=== PATIENT | male | born 1985 | race Two or more races ===

== ENCOUNTER → 2017-12-04 16:44 | Outpatient (CLI) | payer OTHER, SELFPAY ==
[2017-12-04 18:00] LABS: Hemoglobin A1c 5.2 % (4.2-6.3)
[2017-12-04 18:10] LABS: Glucose 84 mg/dL (74-106)
[2017-12-06 07:47] LABS: Fructosamine 238 umol/L (0-285)
== END ==
PROVIDERS: Family Provider Family Medicine; PCP Family Medicine; Visit Provider Family Medicine
DX: K21.9 Gastro-esophageal reflux disease without esophagitis (principal)
CPT/HCPCS: 36415; 82947; 82985; 83036

== ENCOUNTER → 2018-01-22 16:38 | Outpatient (CLI) | payer OTHER, SELFPAY ==
[2018-01-22 18:34] LABS: Anion Gap 5 (5-15); BUN 20 mg/dL (7-18); BUN/Creat Ratio 15.3 RATIO (10-20); Chloride 100 mmol/L (98-107); Cholesterol 229 mg/dL (200); Creatinine, Serum 1.31 mg/dL (0.70-1.30); EST Glomerular Filtration Rate 66 mL/min (>60); Est Glom Filt Rate - Afr Amer 80 mL/min (>60); Glucose 90 mg/dL (74-106); High Density Lipoprotein 43 mg/dL; Potassium 3.5 mmol/L (3.5-5.1); Sodium Level 137 mmol/L (136-145); Triglycerides 146 mg/dL; Very Low Density Lipoprotein 29 mg/dL (5-40)
[2018-01-22 18:50] LABS: Microalbumin,Random Urine 16.3 mg/L (NO RANGE EST.); Microalbumin:Creatinine Ratio 8.1 mg/g CRE (<30 mg/g CRE)
== END ==
PROVIDERS: Family Provider Family Medicine; PCP Family Medicine; Visit Provider Family Medicine
DX: I10 Essential (primary) hypertension (principal)
CPT/HCPCS: 36415; 80048; 80061; 82043; 82570

== ENCOUNTER → 2018-08-04 13:34 | Outpatient (CLI) | payer OTHER, SELFPAY ==
[2018-08-04 15:39] LABS: Absolute Lymphocyte Count 2.87 X10^3/ul (0.83-4.51); Absolute Neutrophil Count 3.5 X10^3/uL (2.0-7.7); Basophil# 0.01 X10^3/uL; Basophil% 0.1 % (0-1); Eosinophil# 0.04 X10^3/uL; Eosinophils% 0.6 % (0-5); Hematocrit 43.7 % (40-54); Hemoglobin 15.9 g/dl (13.0-16.5); Lymphocyte # 2.87 X10^3/ul (4.0); Lymphocyte % 42.3 % (19-41); Mean Corp Hgb Conc 36.4 g/gl (32-36); Mean Corpuscular Hgb 29.6 pg (27.0-32.0); Mean Corpuscular Volume 81.2 fL (80-94); Mean Platelet Vol. 10.7 fl (6.2-12.0); Monocyte# 0.32 X10^3/uL; Monocyte% 4.7 % (0-10); Neutrophil # 3.54 X10^3/uL (2.7-7.7); Neutrophil % 52.2 % (47-70); Platelet Count 181 K/mm3 (150-450); RBC Distribution Width CV 12.2 % (11.6-14.6); RBC Distribution Width SD 35.9 fl (35.1-43.9); Red Blood Count 5.38 M/mm3 (4.6-6.2); White Blood Count 6.8 K/mm3 (4.4-11.0)
[2018-08-04 15:51] LABS: POSITIVE COUNT NO; POSITIVE DIFFERENTIAL NO; POSITIVE MORPHOLOGY NO
[2018-08-04 16:30] LABS: ALB/GLOB Ratio 1.3 RATIO (0.9-2.4); AST(SGOT) 24 U/L (15-37); Alanine Aminotransfer ALT/SGPT 34 U/L (16-61); Albumin, Serum 4.4 g/dL (3.2-5.0); Alkaline Phosphatase 51 U/L (45-117); Anion Gap 8 (5-15); BUN 18 mg/dL (7-18); BUN/Creat Ratio 15.8 RATIO (10-20); Calcium,Total 9.3 mg/dL (8.5-10.1); Chloride 98 mmol/L (98-107); Creatinine, Serum 1.14 mg/dL (0.70-1.30); EST Glomerular Filtration Rate 78 mL/min (>60); Est Glom Filt Rate - Afr Amer 94 mL/min (>60); Globulin 3.3 g/dL (2.2-4.2); Glucose 88 mg/dL (74-106); Potassium 3.7 mmol/L (3.5-5.1); Protein, Total 7.7 g/dL (6.4-8.2); Sodium Level 138 mmol/L (136-145); Thyroid Stim Hormone (TSH) 3.63 uIU/mL (0.358-3.74)
== END ==
PROVIDERS: Family Provider Family Medicine; PCP Family Medicine; Referring Provider Family Medicine; Visit Provider Family Medicine
DX: R07.89 Other chest pain (principal)
CPT/HCPCS: 36415; 80053; 84443; 84484; 85025

== ENCOUNTER 2018-08-05 16:46 | Day surgery (SDC) | payer OTHER, SELFPAY ==
[2018-08-05] VITALS (12 sets, daily range): BP systolic 103–164; BP diastolic 55–101; PULSE 68–91; RESP 10–24; TEMP 36.7–36.9; O2SAT 92–100; BMI 31.8; BMI 31.9
--- NOTE | 2018-08-05 07:18 | RAD_ITS ---
STUDY: X-RAY CHEST REASON FOR EXAM: Male, 32 years old. Atypical chest pain. TECHNIQUE: PA and lateral views of the chest. COMPARISON: None. FINDINGS: The lungs are clear and expanded. There is no demonstrated pleural abnormality. Normal size heart. Normal mediastinum and donya. Normal visualized pulmonary arteries. Normal visualized aortic arch and descending thoracic aorta. There are minor multilevel degenerative changes of the visualized thoracic spine. Normal visualized ribs, clavicles, and shoulders. There is no demonstrated abnormality of the visualized soft tissue structures of the upper abdomen. RAD/Chest PA and Lateral IMPRESSION: No acute cardiopulmonary disease. Electronically Signed: Edgard Vazquez MD at 19:55 EDT , Service support ,
[2018-08-05 07:41] LABS: CPK Total, Creatine Kinase 162 U/L (39-308); CRP 5.65 mg/L (0.0-3.0); LDH 165 U/L (87-241)
--- NOTE | 2018-08-05 19:00 | EKG12_ITS ---
Test Reason : POST STENT Blood Pressure : / mmHG Vent. Rate : 072 BPM Atrial Rate : 072 BPM P-R Int : 188 ms QRS Dur : 102 ms QT Int : 402 ms P-R-T Axes : 043 046 -04 degrees QTc Int : 440 ms Normal sinus rhythm Nonspecific T wave abnormality Confirmed by PATRIA TERRY, RUBEN ([id number]), assignment editor DERECK GARCIA ([id number] on 08/10/2018 3:08:49 PM Referred By: Taina Paulson Confirmed By:RUBEN ESPAÑA MD
--- NOTE | 2018-08-05 19:19 | PCM.HP.STD ---
Problem List (1) Essential (primary) hypertension Status: Chronic (2) Chest pain Status: Resolved (3) NSTEMI (non-ST elevated myocardial infarction) Status: Chronic (4) CAD (coronary artery disease) Status: Deleted History of Present Illness Date of Admission: 08/05/18 Chief Complaint: Chest pain, s/p cardiac cath The patient is a 32 year old M with past medical history of hypertension, hyperlipidemia, strong family history of heart disease who comes in with complaints of chest pain ongoing for the past 6 days. Patient was working out 6 days ago when he had severe substernal chest pain, described as an elephant sitting on his chest, associated with shortness of breath, lasted for a few minutes and radiated to the right side of the chest. Denied any diaphoresis or dizziness or palpitations with it. This chest pain recurred over the next couple of days. It was worse with exertion and relieved with rest. It had no radiation. He denied any fever or chills or nausea or vomiting. He saw his primary care doctor yesterday, and EKG in the office was negative, troponin was elevated at 0.7. Repeat troponin this morning was 0.5. Patient was referred to the primary pinmaker office. He was recommended to have a heart cath. Findings Intracath showed a RCA lesion status post stent. Shunt was seen in the ICU post cardiac cath, he denied any more chest pain or dizziness. He has a right wrist hematoma and a cardiac cath site. Complains of some numbness in the hematoma site. Able to move his fingers. Post cardiac cath precaution and tourniquet still in place. Vitals in the ICU showed blood pressure 140/90, heart rate 69, respiratory rate 18, SPO2 99% on room air. His previous TSH was 3.63 Past Medical History Past Medical History (Chronic Problems): Chronic Problems (Last Reviewed 08/24/18 @ 16:00 by Taina Paulson MD) Atherosclerosis of coronary artery of [place] heart without angina pectoris (Chronic) Presence of stent in coronary artery (Chronic) /AYO to dRCA / NSTEMI (non-ST elevated myocardial infarction) (Chronic) Essential (primary) hypertension (Chronic) Medical History: Medical History (Last Reviewed 08/24/18 @ 16:00 by Taina Paulson MD) Atherosclerosis of coronary artery of [place] heart without angina pectoris (Chronic) I25.10 Chest pain (Resolved) R07.9 Essential (primary) hypertension (Chronic) I10 Allergies No Known Allergies Allergy (Verified 08/05/18 15:10) Home Medications: Ambulatory Orders Medication Instructions Recorded amlodipine 5 mg tablet 5 mg PO DAILY 08/05/18 multivitamin tablet 1 tab PO DAILY 08/05/18 omega-3 fatty acids 1,000 mg 1,000 mg PO DAILY 08/05/18 capsule quinapril 5 mg tablet 5 mg PO DAILY 08/05/18 Aspirin E.C. [Ecotrin] 81 mg PO DAILY@0800 tab 08/06/18 clopidogrel 75 mg tablet 75 mg PO DAILY #30 tab 08/20/18 coenzyme Q10 100 mg capsule 100 mg PO DAILY #30 cap 08/24/18 indapamide 1.25 mg tablet 1.25 mg PO DAILY 90 Days #90 tab 08/24/18 rosuvastatin 10 mg tablet 10 mg PO DAILY #30 tab 08/24/18 Surgical History: Surgical History (Last Reviewed 08/24/18 @ 16:00 by Taina Paulson MD) Presence of stent in coronary artery (Chronic) Z95.5 /AYO to dRCA / Surgical History: no surgical history Psychiatric History: No pertinent psych hx Lives: With Family Smoking Status: Never smoker Tobacco Use: Non-smoker Alcohol: None Drugs: None - *Family History Maternal Family History: Family History (Last Reviewed 08/24/18 @ 16:00 by Taina Paulson MD) Grandfather Hypertension Father Hypertension CAD (coronary artery disease) Diabetes Mother Hypertension Diabetes History Items: Diabetes, Hypertension Paternal Family History: Family History (Last Reviewed 08/24/18 @ 16:00 by Taina Paulson MD) Grandfather Hypertension Father Hypertension CAD (coronary artery disease) Diabetes Mother Hypertension Diabetes History Items: Diabetes, Hypertension, - - CAD Review of Systems Constitutional: Denies: Anorexia, Chills, Fever, Malaise, Weakness, Weight Change Eyes: Denies: Blurred vision, Cataracts, Conjunctivae Inflammation, Pain, Redness, Vision Change HEENT: Denies: Difficulty Hearing, Difficulty Swallowing, Head Aches, Hearing Changes, Sinus Congestion, Sinus Drainage Cardiovascular: Reports: Chest Pain, Chest Pressure, Chest Tightness. Denies: Claudication, Light Headedness, Orthopnea, Palpitations, Paroxysmal Noc. Dyspnea Respiratory: Denies: Cough, Hemoptysis, Shortness of breath at rest, Shortness of breath upon exertion, Sputum production Gastrointestinal: Denies: Abdominal Pain, Hematemesis, Hematochezia, Nausea, Vomiting Genitourinary: Denies: Dysuria Musculoskeletal: Denies: Joint Pain, Joint Tenderness Skin: Denies: Dryness, Jaundice, Rash, Wounds Neurological: Denies: Numbness, Tingling, Focal weakness Psychiatric: Denies: Anxiety, Depression, Homicidal Ideations, Suicidal Ideations Hematologic/ Lymphatic: Denies: Easy Bruising, Easy Bleeding VTE Information - Inpt Only VTE Present on Admission: No VTE Pharm Prophylaxis ordered?: Yes - Physical Exam General: Alert, Oriented x3, Cooperative, No apparent distress HEENT: Atraumatic, PERRLA, EOMI, Normocephalic Oral: Moist Mucosa Neck: Supple Lungs: Clear to auscultation, Normal air movement Cardiovascular: Regular rate, Regular Rhythm, Normal S1, Normal S2, No murmurs Abdomen: Bowel Sounds Present, Soft, Non Tender, Non-Distended, No Hepato-splenomegaly Extremities: No edema, - - Right wrist hematoma at cardiac cath site Skin: No rashes Musculoskeletal: No Tenderness to Palpation of Joints or Extremities Lymphatic: No Cervical, Supraclavicular, or Inguinal Adenopathy Neurological: Cranial nerves II-XII grossly intact, Neuro grossly intact Psych/Mental Status: Normal Affect, Appropriate Body Mass Index (BMI) 31.8 Laboratory Tests Past 24 Hrs 08/05/18 08/05/18 08/05/18 07:07 07:07 07:07 Lactate Dehydrogenase 165 Total Creatine Kinase 162 Troponin I 0.502 H C-React Prot Ext Range 5.65 H Aldolase Pending MELIA Screen Pending Assessment/Plan All Active Problems (Last Reviewed 08/24/18 @ 16:00 by Taina Paulson MD) Chest pain (Resolved) 32 year old M with past medical history of hypertension, hyperlipidemia, strong family history of heart disease who comes in with complaints of chest pain ongoing for the past 6 days. 1. NSTEMI, ELEAZAR score of 5, s/p cardiac cath, finding show RCA, s/p stent, stable vitals Plan: Admit to ICU, post cath orders, cardiology on board, on aspirin and Brilinta, continue on statin, Quinapril 2. Hypertension,controlled, will continue with home BP meds 3. Hyperlipidemia, not statin, will check lipid profile in am 4. DVT PPx- early ambulation Code Visit Inpatient E&M: 45309 Init Hosp L3
[2018-08-05] MEDS: TICAGRELOR 90 MG TABLET PO (22:28)
[2018-08-05] MEDS: Atorvastatin Calcium 40 MG Tablet PO (22:28)
[2018-08-06] VITALS (12 sets, daily range): BP systolic 105–135; BP diastolic 70–97; PULSE 65–75; RESP 9–21; TEMP 36.6–36.8; O2SAT 95–98
[2018-08-06 04:46] LABS: Absolute Lymphocyte Count 2.02 X10^3/ul (0.83-4.51); Absolute Neutrophil Count 4.9 X10^3/uL (2.0-7.7); Basophil# 0.01 X10^3/uL; Basophil% 0.1 % (0-1); Eosinophil# 0.04 X10^3/uL; Eosinophils% 0.5 % (0-5); Hematocrit 41.8 % (40-54); Lymphocyte # 2.02 X10^3/ul (4.0); Lymphocyte % 26.2 % (19-41); Mean Platelet Vol. 10.5 fl (6.2-12.0); Monocyte# 0.74 X10^3/uL; Monocyte% 9.6 % (0-10); Neutrophil # 4.89 X10^3/uL (2.7-7.7); Neutrophil % 63.3 % (47-70); Platelet Count 204 K/mm3 (150-450); RBC Distribution Width CV 12.2 % (11.6-14.6); RBC Distribution Width SD 34.7 fl (35.1-43.9); Red Blood Count 5.29 M/mm3 (4.6-6.2); White Blood Count 7.7 K/mm3 (4.4-11.0)
[2018-08-06 04:50] LABS: Hemoglobin 15.6 g/dl (13.0-16.5); Mean Corp Hgb Conc 37.3 g/gl (32-36); Mean Corpuscular Hgb 29.5 pg (27.0-32.0); POSITIVE COUNT NO; POSITIVE DIFFERENTIAL NO; POSITIVE MORPHOLOGY NO
[2018-08-06 04:56] LABS: ALB/GLOB Ratio 1.2 RATIO (0.9-2.4); AST(SGOT) 19 U/L (15-37); Alanine Aminotransfer ALT/SGPT 29 U/L (16-61); Albumin, Serum 3.8 g/dL (3.2-5.0); Alkaline Phosphatase 49 U/L (45-117); Anion Gap 8 (5-15); BUN 20 mg/dL (7-18); Calcium,Total 8.7 mg/dL (8.5-10.1); Chloride 102 mmol/L (98-107); Cholesterol 229 mg/dL (200); Creatinine, Serum 1.25 mg/dL (0.70-1.30); EST Glomerular Filtration Rate 70 mL/min (>60); Est Glom Filt Rate - Afr Amer 85 mL/min (>60); Estimated Creatinine Clearance 72.43 ml/min; Globulin 3.2 g/dL (2.2-4.2); Glucose 125 mg/dL (74-106); High Density Lipoprotein 34 mg/dL; Potassium 3.1 mmol/L (3.5-5.1); Sodium Level 140 mmol/L (136-145); Triglycerides 317 mg/dL; Very Low Density Lipoprotein 63 mg/dL (5-40)
[2018-08-06] MEDS: Aspirin E.C. 81 MG Tablet PO (09:10)
[2018-08-06] MEDS: TICAGRELOR 90 MG TABLET PO (09:10)
--- NOTE | 2018-08-06 09:41 | CASEMGMT ---
RN CM Assessment Presentation: PCI of dRCA. chest pain. Intro role of CM and purpose of RN CM assessment to patient in room. Pt is sitting in chair, awake, alert and able to participate in assessment. Demographics, PCP and Pharmacy verified. PCP: Dr. Mack Neff Specialists: Dr. Moulton, cardiology Preferred Pharmacy: [facility] Insurance: [facility] Prescription Benefit: yes. [employer] savings card and information brochure given and explained to pt. LNOK: Edward Paniagua [phone] Living Arrangements: Lives independently with Transportation: Drives DME: none HHC: none Patient DC goals: Home DC PLAN: Home. Noemy GONSALEZ RN ACM
--- NOTE | 2018-08-06 09:47 | DCINST_ITS ---
- Discharge Diagnoses Current Active Problems: Current Active and Chronic Problems (Last Reviewed 08/05/18 @ 15:54 by Taina Paulson MD) NSTEMI (non-ST elevated myocardial infarction) (Acute) CAD (coronary artery disease) (Acute) You will use the following diet at home:: Cardiac Your food should be the consistency of: Regular Your liquids should be the consistency of: Regular/Thin Discharge Activity: Return to Normal Activity Allergies/Adverse Reactions: Allergies No Known Allergies Allergy (Verified 08/05/18 15:10) Medications to take at Discharge amlodipine 5 mg tablet 5 mg PO DAILY 08/05/18 multivitamin tablet 1 tab PO DAILY 08/05/18 omega-3 fatty acids 1,000 mg capsule 1,000 mg PO DAILY 08/05/18 quinapril 5 mg tablet 5 mg PO DAILY 08/05/18 Acetaminophen [Tylenol Tablet] 650 mg PO Q6H PRN PRN tablet 08/06/18 Aspirin E.C. [Ecotrin] 81 mg PO DAILY@0800 tablet 08/06/18 Atorvastatin Calcium [Lipitor] 40 mg PO QHS #30 tablet 08/06/18 Ticagrelor [Brilinta] 90 mg PO BID #60 tablet 08/06/18 The following prescriptions were given: Atorvastatin Calcium [Lipitor] 40 mg PO QHS #30 tablet Ticagrelor [Brilinta] 90 mg PO BID #60 tablet Primary Care Physician: Mack Neff MD [Primary Care Provider] - Please follow up with your Primary Care Physician in: 1-2 weeks Test Results: Test results from this visit will be discussed in further detail at your follow- up appointment, if applicable. Please Follow Up With: Taina Paulson MD When: as directed Proposed Discharge Date: 08/06/18
--- NOTE | 2018-08-06 10:00 | EKG12_ITS ---
Test Reason : AM EKG Blood Pressure : / mmHG Vent. Rate : 066 BPM Atrial Rate : 066 BPM P-R Int : 172 ms QRS Dur : 100 ms QT Int : 398 ms P-R-T Axes : 032 054 -04 degrees QTc Int : 417 ms Normal sinus rhythm Nonspecific T wave abnormality Confirmed by PATRIA TERRY, RUBEN ([id number]), content editor DERECK GARCIA ([id number]) on 08/10/2018 3:08:29 PM Referred By: Taina Paulson Confirmed By:RUBEN ESPAÑA MD
--- NOTE | 2018-08-06 11:21 | PCM.PN.CARD ---
Subjectve: Patient doing well this morning, no chest pain or angina. He appears to have a small hematoma upstream from his right radial access site, excellent 2+ pulses, no evidence of compartment syndrome. 2+ brachial pulses well. Telemetry negative. EKG shows normal sinus rhythm with resolving inferior T wave inversion. No acute changes. Hemoglobin and creatinine are within nominal limits. Objective: Vital Signs Temp Pulse Resp BP Pulse Ox 98.2 F 72 12 121/78 H 97 08/06/18 04:00 08/06/18 10:00 08/06/18 10:00 08/06/18 10:00 08/06/18 10:00 Oxygen Delivery Method Room Air Weight: 192 lb 0.362 oz Body Mass Index (BMI) 31.9 Intake and Output for Last 24 Hours 08/04/18 08/05/18 08/06/18 23:59 23:59 23:59 Intake Total 1044.1 / 1044.1 Balance 1044.1 / 1044.1 General: Awake, Alert, Oriented x 3 HEENT: PERRL, EOMI, Sclera Non Icteric Neck: Supple, Good ROM, No Lymph Node Enlargement Lungs: Clear to auscultation Cardiovascular: Regular Rhythm, Normal S1, Normal S2, No Murmurs, No Rubs, No Gallops Vascular: No Carotid Bruits, Normal Femoral Pulses, Normal Radial Pulses, Normal Dorsalis Pedal Pulse, Normal Posterior Tibial Pulses Abdomen: Bowel Sounds Present, Soft, Non Tender, No HSM, No Organomegaly Extremities: No Cyanosis, No Clubbing, No edema Neurological: No Focal Motor or Sensory Deficit Rhythm: EKG: ECHO: Stress Test: Cardiac Cath: PCI: CT Surgery: Holter monitor: EPS: PPM: CXR: Chest CT Scan: Medical Necessity - Tobacco Use Smoking Status: Never smoker Tobacco Use: Non-smoker Assessment/Plan 1. Coronary artery disease: Patient status post unstable angina, non-STEMI, with urgent left heart catheterization yesterday by Dr. Paulson. At that time he had a drug-eluting stent to his distal right coronary artery. He had nonobstructive disease of his LAD and left circumflex. He had normal LV function. Subsequent to that he had a small nonobstructive non-compartmentalized hematoma in his right forearm, with excellent 2+ radial pulses, and hematoma appears to be stable. It is soft, nontender, and no significant ecchymosis noted. I informed the patient that his hematoma may become cauterized on the skin, and to notify us immediately if it gets worse, becomes painful, red or infected. The patient will continue baby aspirin, Brilinta, amlodipine and quinapril. 2. Hyperlipidemia: The patient requires aggressive LDL reduction for further plaque stabilization. Continue Lipitor. We will repeat lipid profile after cardiac rehab. 3. Patient be discharged home and follow-up Dr. Paulson going forward. Code Visit Inpatient E&M: 99626 Subs Hosp L2
--- NOTE | 2018-08-06 11:36 | CRPHASE1_ITS ---
Patient Communication Choice Letter Given to Patient:: Yes Guide to Cardiac Rehab Given by ICU Staff Prior to Discharge: No - pt states does not have the booklet Guide to Cardiac Rehab Mailed to Patient by CR Staff:: Yes Patient Contacted Post Discharge by CR Staff:: Yes PHII Cardiac Rehab Referral:: [facility] Phase I Charge:: Level I - Education Risk Factors/Lifestyle Family History: Family History (Last Reviewed 08/24/18 @ 16:00 by Taina Paulson MD) Grandfather Hypertension Father Hypertension CAD (coronary artery disease) Diabetes Mother Hypertension Diabetes Laboratory Values: Cardiac Rehab Phase I Labs Triglycerides 317 mg/dL (-199) H 08/06/18 04:25 Cholesterol 229 mg/dL (200) H 08/06/18 04:25 LDL Cholesterol 132 mg/dL (0-130) H 08/06/18 04:25 HDL Cholesterol 34 mg/dL (40-) L 08/06/18 04:25 Discharge/Home/Social Eval Discharge Disposition: Home - Pt was discharged prior to CR visit, so contacted by phone and Booklet mailed to him. Cardiac Rehabilitation Info Cardiac Rehabilitation Program Information: Cardiac Rehabilitation is important for patients like you who are recovering from a heart problem. Cardiac rehabilitation programs are recognized as integral to the continued care of the patient with coronary heart disease. The cardiac rehabilitation program is designed to optimize a patient's physical, psychological, and social functioning. Health before and after school daycare worker work in cardiac rehabilitation programs and assist you with getting the treatme nts you need to get stronger and healthier - like exercise, healthy eating habits, and medications. Cardiac rehabilitation has been show to help people with heart problems live longer and have better life enjoyment than people who do not go to cardiac rehabilitation. Please contact the Cardiac Rehabilitation Program at [facility] at in two weeks if you have not heard from them.
--- NOTE | 2018-08-06 11:40 | CRPHASE1_ITS ---
Patient Communication Choice Letter Given to Patient:: Yes Guide to Cardiac Rehab Given by ICU Staff Prior to Discharge: No - pt states does not have the booklet Guide to Cardiac Rehab Mailed to Patient by CR Staff:: Yes Patient Contacted Post Discharge by CR Staff:: Yes PHII Cardiac Re[facility] Phase I Charge:: Level I - Education Risk Factors/Lifestyle Family History: Family History (Last Reviewed 08/05/18 @ 15:54 by Taina Paulson MD) Grandfather Hypertension Father Hypertension CAD (coronary artery disease) Diabetes Mother Hypertension Diabetes Laboratory Values: Cardiac Rehab Phase I Labs Triglycerides 317 mg/dL (-199) H 08/06/18 04:25 Cholesterol 229 mg/dL (200) H 08/06/18 04:25 LDL Cholesterol 132 mg/dL (0-130) H 08/06/18 04:25 HDL Cholesterol 34 mg/dL (40-) L 08/06/18 04:25 Discharge/Home/Social Eval Discharge Disposition: Home - Pt was discharged prior to CR visit, so contacted by phone and Booklet mailed to him. Cardiac Rehabilitation Info Cardiac Rehabilitation Program Information: Cardiac Rehabilitation is important for patients like you who are recovering from a heart problem. Cardiac rehabilitation programs are recognized as integral to the continued care of the patient with coronary heart disease. The cardiac rehabilitation program is designed to optimize a patient's physical, psychological, and social functioning. Health childcare administrator work in cardiac rehabilitation programs and assist you with getting the treatme nts you need to get stronger and healthier - like exercise, healthy eating habits, and medications. Cardiac rehabilitation has been show to help people with heart problems live longer and have better life enjoyment than people who do not go to cardiac rehabilitation. Please contact the Cardiac Rehabilitation Program at [facility] at in two weeks if you have not heard from them.
--- NOTE | 2018-08-06 11:40 | CRPH1.INSTRU ---
General Education CAD and cardiac anatomy and function:: Not instructed - Pt. discharged prior to visit by CR staff, so called on phone and info given about CR. States he doesn't have booklet, so one mailed to him.
--- NOTE | 2018-08-06 13:09 | PCM.DC.SUM ---
<Horacio Maharaj - Last Filed: 08/06/18 13:09> Discharge Date and Diagnosis Date of Admission: 08/05/18 Date of Discharge: 08/06/18 - Primary Discharge Diagnosis Non-STEMI Hypertension Hyperlipidemia - Secondary Discharge Diagnosis Chronic Problems (Last Reviewed 08/05/18 @ 15:54 by Taina Paulson MD) Essential (primary) hypertension (Chronic) Hospital Course and Treatment Imaging Results: RAD/Chest PA and Lateral IMPRESSION: No acute cardiopulmonary disease. Left heart cath: Single-vessel CAD with successful PTCA to the distal right coronary artery. 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 Prior to the office he had troponins drawn which were elevated at 0.5 and 0.7. He was sent for heart catheterization from the office for non-STEMI. He underwent stent placement as above. He was kept in the hospital overnight for monitoring. Bleeding was controlled, and he had no further chest pain. He was placed on atorvastatin, aspirin, Brilinta, quinapril, and amlodipine at discharge. He was discharged home in stable condition. He will need to follow-up with his PCP in 1 to 2 weeks, and with cardiology as directed. This patient was seen by Horacio Maharaj PA-C under the supervision of Doctor Jeffery. [] - Physical Exam General: Alert, Oriented x3, Cooperative HEENT: Atraumatic, PERRLA, EOMI, Normocephalic Neck: Supple, No JVD, Negative Carotid Bruits Lungs: Clear to auscultation, Normal air movement Cardiovascular: Regular rate, No murmurs Abdomen: Bowel Sounds Present, Soft, Non Tender Extremities: No edema, Capillary Refill Less than 3 Seconds Skin: No rashes, No breakdown Musculoskeletal: No Tenderness to Palpation of Joints or Extremities Neurological: Cranial nerves II-XII grossly intact Psych/Mental Status: Normal Affect, Appropriate Vital Signs Temp Pulse Resp BP Pulse Ox 98.2 F 72 12 121/78 H 97 08/06/18 04:00 08/06/18 10:00 08/06/18 10:00 08/06/18 10:00 08/06/18 10:00 Oxygen Delivery Method Room Air Weight: 192 lb 0.362 oz Body Mass Index (BMI) 31.8 Intake and Output for Last 24 Hours 08/04/18 08/05/18 08/06/18 23:59 23:59 23:59 Intake Total 1044.1 / 1044.1 Balance 1044.1 / 1044.1 Laboratory Tests Past 24 Hrs 08/05/18 08/05/18 08/05/18 07:07 07:07 07:07 WBC RBC Hgb Hct MCV MCH MCHC RDW RDW Differential Plt Count MPV Immature Gran % (Auto) Neut % (Auto) Lymph % (Auto) Major % (Auto) Eos % (Auto) Baso % (Auto) Absolute Neuts (auto) Absolute Lymphs (auto) Sodium Potassium Chloride Carbon Dioxide Anion Gap BUN Creatinine Estim Creat Clear Calc Est GFR (MDRD) Af Amer Est GFR (MDRD) Non-Af BUN/Creatinine Ratio Glucose Calcium Total Bilirubin AST ALT Alkaline Phosphatase Lactate Dehydrogenase 165 Total Creatine Kinase 162 Troponin I 0.502 H C-React Prot Ext Range 5.65 H Total Protein Albumin Globulin Albumin/Globulin Ratio Triglycerides Cholesterol LDL Cholesterol VLDL Cholesterol HDL Cholesterol Aldolase Pending MELIA Screen Pending 08/06/18 08/06/18 04:25 04:25 WBC 7.7 RBC 5.29 Hgb 15.6 Hct 41.8 MCV 79.0 L MCH 29.5 MCHC 37.3 H RDW 12.2 RDW Differential 34.7 L Plt Count 204 MPV 10.5 Immature Gran % (Auto) 0.300 Neut % (Auto) 63.3 Lymph % (Auto) 26.2 Major % (Auto) 9.6 Eos % (Auto) 0.5 Baso % (Auto) 0.1 Absolute Neuts (auto) 4.9 Absolute Lymphs (auto) 2.02 Sodium 140 Potassium 3.1 L Chloride 102 Carbon Dioxide 30.0 Anion Gap 8 BUN 20 H Creatinine 1.25 Estim Creat Clear Calc 72.43 Est GFR (MDRD) Af Amer 85 Est GFR (MDRD) Non-Af 70 BUN/Creatinine Ratio 16.0 Glucose 125 H Calcium 8.7 Total Bilirubin 0.60 AST 19 ALT 29 Alkaline Phosphatase 49 Lactate Dehydrogenase Total Creatine Kinase Troponin I C-React Prot Ext Range Total Protein 7.0 Albumin 3.8 Globulin 3.2 Albumin/Globulin Ratio 1.2 Triglycerides 317 H Cholesterol 229 H LDL Cholesterol 132 H VLDL Cholesterol 63 H HDL Cholesterol 34 L Aldolase MELIA Screen Discharge Diet: Low fat/ Low Cholesterol, 2000 mg Sodium Diet Discharge Activity: Return to Normal Activity Home Medications: Medications to take at Discharge amlodipine 5 mg tablet 5 mg PO DAILY 08/05/18 multivitamin tablet 1 tab PO DAILY 08/05/18 omega-3 fatty acids 1,000 mg capsule 1,000 mg PO DAILY 08/05/18 quinapril 5 mg tablet 5 mg PO DAILY 08/05/18 Acetaminophen [Tylenol Tablet] 650 mg PO Q6H PRN PRN tablet 08/06/18 Aspirin E.C. [Ecotrin] 81 mg PO DAILY@0800 tablet 08/06/18 Atorvastatin Calcium [Lipitor] 40 mg PO QHS #30 tablet 08/06/18 Ticagrelor [Brilinta] 90 mg PO BID #60 tablet 08/06/18 Following Prescrptions Were Given to Patient: Atorvastatin Calcium [Lipitor] 40 mg PO QHS #30 tablet Ticagrelor [Brilinta] 90 mg PO BID #60 tablet Primary Care Physician: Mack Neff MD [Primary Care Provider] - Please follow up with your Primary Care Physician in: 1-2 weeks Please Follow Up With: Taina Paulson MD When: as directed Disposition: Home Minutes spent on discharge:: 35 Patient Condition:: Stable Medical Necessity - Tobacco Use Smoking Status: Never smoker Tobacco Use: Non-smoker Meaningful Use Info Meaningful Use Diagnoses (Choose all that apply): AMI - AMI Aspirin given w/in 24hrs of arrival?: Yes ASA at discharge?: Yes Statins at discharge?: Yes Juan/ARB at discharge?: Yes Beta Gwen at discharge?: No Reason Beta Gwen not ordered:: Hypotension Done w/ Acute LA measure.: Yes Documented LVEF (%): 60 <Jose Jeffery - Last Filed: 08/06/18 13:34> Discharge Date and Diagnosis - Secondary Discharge Diagnosis Chronic Problems (Last Reviewed 08/05/18 @ 15:54 by Taina Paulson MD) Essential (primary) hypertension (Chronic) Hospital Course and Treatment Summary of Care Provided: The patient is a 32 year old M [] - Physical Exam Vital Signs Temp Pulse Resp BP Pulse Ox 98.2 F 72 12 121/78 H 97 08/06/18 04:00 08/06/18 10:00 08/06/18 10:00 08/06/18 10:00 08/06/18 10:00 Oxygen Delivery Method Room Air Weight: 192 lb 0.362 oz Body Mass Index (BMI) 31.8 Intake and Output for Last 24 Hours 08/04/18 08/05/18 08/06/18 23:59 23:59 23:59 Intake Total 1044.1 / 1044.1 Balance 1044.1 / 1044.1 Laboratory Tests Past 24 Hrs 08/05/18 08/05/18 08/05/18 07:07 07:07 07:07 WBC RBC Hgb Hct MCV MCH MCHC RDW RDW Differential Plt Count MPV Immature Gran % (Auto) Neut % (Auto) Lymph % (Auto) Major % (Auto) Eos % (Auto) Baso % (Auto) Absolute Neuts (auto) Absolute Lymphs (auto) Sodium Potassium Chloride Carbon Dioxide Anion Gap BUN Creatinine Estim Creat Clear Calc Est GFR (MDRD) Af Amer Est GFR (MDRD) Non-Af BUN/Creatinine Ratio Glucose Calcium Total Bilirubin AST ALT Alkaline Phosphatase Lactate Dehydrogenase 165 Total Creatine Kinase 162 Troponin I 0.502 H C-React Prot Ext Range 5.65 H Total Protein Albumin Globulin Albumin/Globulin Ratio Triglycerides Cholesterol LDL Cholesterol VLDL Cholesterol HDL Cholesterol Aldolase Pending MELIA Screen Pending 08/06/18 08/06/18 04:25 04:25 WBC 7.7 RBC 5.29 Hgb 15.6 Hct 41.8 MCV 79.0 L MCH 29.5 MCHC 37.3 H RDW 12.2 RDW Differential 34.7 L Plt Count 204 MPV 10.5 Immature Gran % (Auto) 0.300 Neut % (Auto) 63.3 Lymph % (Auto) 26.2 Major % (Auto) 9.6 Eos % (Auto) 0.5 Baso % (Auto) 0.1 Absolute Neuts (auto) 4.9 Absolute Lymphs (auto) 2.02 Sodium 140 Potassium 3.1 L Chloride 102 Carbon Dioxide 30.0 Anion Gap 8 BUN 20 H Creatinine 1.25 Estim Creat Clear Calc 72.43 Est GFR (MDRD) Af Amer 85 Est GFR (MDRD) Non-Af 70 BUN/Creatinine Ratio 16.0 Glucose 125 H Calcium 8.7 Total Bilirubin 0.60 AST 19 ALT 29 Alkaline Phosphatase 49 Lactate Dehydrogenase Total Creatine Kinase Troponin I C-React Prot Ext Range Total Protein 7.0 Albumin 3.8 Globulin 3.2 Albumin/Globulin Ratio 1.2 Triglycerides 317 H Cholesterol 229 H LDL Cholesterol 132 H VLDL Cholesterol 63 H HDL Cholesterol 34 L Aldolase MELIA Screen Code Visit Addendum: Dr. Jeffery I personally examined the patient and reviewed the chart. I agree with the above. 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 He has a significant coronary artery disease history in the family with his father and an uncle who recently from a heart attack as well as other family members with early onset cardiac disease. Prior to his office visit he had had troponins drawn which were slightly elevated and he was taken for cardiac cath as an outpatient and had to have a stent placed. He had some upper arm pain and a hematoma at the site of his cardiac cath which was evaluated by cardiology on the day of discharge and felt that he could go home on his aspirin and Brilinta. He is also on quinapril and Norvasc for his chronic hypertension. I had an extensive discussion today about lifestyle modifications. It does seem that he has a significant genetic component to his coronary artery disease however he also states that his diet is not as great as it could be. Also recommended that while tightening up his diet, that he should also start doing some cardiovascular exercises when cleared by cardiology. Inpatient E&M: [id number] Disch Hosp
--- NOTE | 2018-08-06 13:14 | DS.PCM_ITS ---
<Horacio Maharaj - Last Filed: 08/06/18 13:09> Discharge Date and Diagnosis Date of Admission: 08/05/18 Date of Discharge: 08/06/18 - Primary Discharge Diagnosis Non-STEMI Hypertension Hyperlipidemia - Secondary Discharge Diagnosis Chronic Problems (Last Reviewed 08/05/18 @ 15:54 by Taina Paulson MD) Essential (primary) hypertension (Chronic) Hospital Course and Treatment Imaging Results: RAD/Chest PA and Lateral IMPRESSION: No acute cardiopulmonary disease. Left heart cath: Single-vessel CAD with successful PTCA to the distal right coronary artery. 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 Prior to the office he had troponins drawn which were elevated at 0.5 and 0.7. He was sent for heart catheterization from the office for non-STEMI. He underwent stent placement as above. He was kept in the hospital overnight for monitoring. Bleeding was controlled, and he had no further chest pain. He was placed on atorvastatin, aspirin, Brilinta, quinapril, and amlodipine at discharge. He was discharged home in stable condition. He will need to follow-up with his PCP in 1 to 2 weeks, and with cardiology as directed. This patient was seen by Horacio Maharaj PA-C under the supervision of Doctor Rebecca cahloun. [] - Physical Exam General: Alert, Oriented x3, Cooperative HEENT: Atraumatic, PERRLA, EOMI, Normocephalic Neck: Supple, No JVD, Negative Carotid Bruits Lungs: Clear to auscultation, Normal air movement Cardiovascular: Regular rate, No murmurs Abdomen: Bowel Sounds Present, Soft, Non Tender Extremities: No edema, Capillary Refill Less than 3 Seconds Skin: No rashes, No breakdown Musculoskeletal: No Tenderness to Palpation of Joints or Extremities Neurological: Cranial nerves II-XII grossly intact Psych/Mental Status: Normal Affect, Appropriate Vital Signs Temp Pulse Resp BP Pulse Ox 98.2 F 72 12 121/78 H 97 08/06/18 04:00 08/06/18 10:00 08/06/18 10:00 08/06/18 10:00 08/06/18 10:00 Oxygen Delivery Method Room Air Weight: 192 lb 0.362 oz Body Mass Index (BMI) 31.8 Intake and Output for Last 24 Hours 08/04/18 08/05/18 08/06/18 23:59 23:59 23:59 Intake Total 1044.1 / 1044.1 Balance 1044.1 / 1044.1 Laboratory Tests Past 24 Hrs 08/05/18 08/05/18 08/05/18 07:07 07:07 07:07 WBC RBC Hgb Hct MCV MCH MCHC RDW RDW Differential Plt Count MPV Immature Gran % (Auto) Neut % (Auto) Lymph % (Auto) [place] % (Auto) Eos % (Auto) Baso % (Auto) Absolute Neuts (auto) Absolute Lymphs (auto) Sodium Potassium Chloride Carbon Dioxide Anion Gap BUN Creatinine Estim Creat Clear Calc Est GFR (MDRD) Af Amer Est GFR (MDRD) Non-Af BUN/Creatinine Ratio Glucose Calcium Total Bilirubin AST ALT Alkaline Phosphatase Lactate Dehydrogenase 165 Total Creatine Kinase 162 Troponin I 0.502 H C-React Prot Ext Range 5.65 H Total Protein Albumin Globulin Albumin/Globulin Ratio Triglycerides Cholesterol LDL Cholesterol VLDL Cholesterol HDL Cholesterol Aldolase Pending MELIA Screen Pending 08/06/18 08/06/18 04:25 04:25 WBC 7.7 RBC 5.29 Hgb 15.6 Hct 41.8 MCV 79.0 L MCH 29.5 MCHC 37.3 H RDW 12.2 RDW Differential 34.7 L Plt Count 204 MPV 10.5 Immature Gran % (Auto) 0.300 Neut % (Auto) 63.3 Lymph % (Auto) 26.2 [place] % (Auto) 9.6 Eos % (Auto) 0.5 Baso % (Auto) 0.1 Absolute Neuts (auto) 4.9 Absolute Lymphs (auto) 2.02 Sodium 140 Potassium 3.1 L Chloride 102 Carbon Dioxide 30.0 Anion Gap 8 BUN 20 H Creatinine 1.25 Estim Creat Clear Calc 72.43 Est GFR (MDRD) Af Amer 85 Est GFR (MDRD) Non-Af 70 BUN/Creatinine Ratio 16.0 Glucose 125 H Calcium 8.7 Total Bilirubin 0.60 AST 19 ALT 29 Alkaline Phosphatase 49 Lactate Dehydrogenase Total Creatine Kinase Troponin I C-React Prot Ext Range Total Protein 7.0 Albumin 3.8 Globulin 3.2 Albumin/Globulin Ratio 1.2 Triglycerides 317 H Cholesterol 229 H LDL Cholesterol 132 H VLDL Cholesterol 63 H HDL Cholesterol 34 L Aldolase MELIA Screen Discharge Diet: Low fat/ Low Cholesterol, 2000 mg Sodium Diet Discharge Activity: Return to Normal Activity Home Medications: Medications to take at Discharge amlodipine 5 mg tablet 5 mg PO DAILY 08/05/18 multivitamin tablet 1 tab PO DAILY 08/05/18 omega-3 fatty acids 1,000 mg capsule 1,000 mg PO DAILY 08/05/18 quinapril 5 mg tablet 5 mg PO DAILY 08/05/18 Acetaminophen [Tylenol Tablet] 650 mg PO Q6H PRN PRN tablet 08/06/18 Aspirin E.C. [Ecotrin] 81 mg PO DAILY@0800 tablet 08/06/18 Atorvastatin Calcium [Lipitor] 40 mg PO QHS #30 tablet 08/06/18 Ticagrelor [Brilinta] 90 mg PO BID #60 tablet 08/06/18 Following Prescrptions Were Given to Patient: Atorvastatin Calcium [Lipitor] 40 mg PO QHS #30 tablet Ticagrelor [Brilinta] 90 mg PO BID #60 tablet Primary Care Physician: Mack Neff MD [Primary Care Provider] - Please follow up with your Primary Care Physician in: 1-2 weeks Please Follow Up With: Taina Paulson MD When: as directed Disposition: Home Minutes spent on discharge:: 35 Patient Condition:: Stable Medical Necessity - Tobacco Use Smoking Status: Never smoker Tobacco Use: Non-smoker Meaningful Use Info Meaningful Use Diagnoses (Choose all that apply): AMI - AMI Aspirin given w/in 24hrs of arrival?: Yes ASA at discharge?: Yes Statins at discharge?: Yes Juan/ARB at discharge?: Yes Beta Gwen at discharge?: No Reason Beta Gwen not ordered:: Hypotension Done w/ Acute NH measure.: Yes Documented LVEF (%): 60 <Jose Jeffery - Last Filed: 08/06/18 13:34> Discharge Date and Diagnosis - Secondary Discharge Diagnosis Chronic Problems (Last Reviewed 08/05/18 @ 15:54 by Taina Paulson MD) Essential (primary) hypertension (Chronic) Hospital Course and Treatment Summary of Care Provided: The patient is a 32 year old M [] - Physical Exam Vital Signs Temp Pulse Resp BP Pulse Ox 98.2 F 72 12 121/78 H 97 08/06/18 04:00 08/06/18 10:00 08/06/18 10:00 08/06/18 10:00 08/06/18 10:00 Oxygen Delivery Method Room Air Weight: 192 lb 0.362 oz Body Mass Index (BMI) 31.8 Intake and Output for Last 24 Hours 08/04/18 08/05/18 08/06/18 23:59 23:59 23:59 Intake Total 1044.1 / 1044.1 Balance 1044.1 / 1044.1 Laboratory Tests Past 24 Hrs 08/05/18 08/05/18 08/05/18 07:07 07:07 07:07 WBC RBC Hgb Hct MCV MCH MCHC RDW RDW Differential Plt Count MPV Immature Gran % (Auto) Neut % (Auto) Lymph % (Auto) [place] % (Auto) Eos % (Auto) Baso % (Auto) Absolute Neuts (auto) Absolute Lymphs (auto) Sodium Potassium Chloride Carbon Dioxide Anion Gap BUN Creatinine Estim Creat Clear Calc Est GFR (MDRD) Af Amer Est GFR (MDRD) Non-Af BUN/Creatinine Ratio Glucose Calcium Total Bilirubin AST ALT Alkaline Phosphatase Lactate Dehydrogenase 165 Total Creatine Kinase 162 Troponin I 0.502 H C-React Prot Ext Range 5.65 H Total Protein Albumin Globulin Albumin/Globulin Ratio Triglycerides Cholesterol LDL Cholesterol VLDL Cholesterol HDL Cholesterol Aldolase Pending MELIA Screen Pending 08/06/18 08/06/18 04:25 04:25 WBC 7.7 RBC 5.29 Hgb 15.6 Hct 41.8 MCV 79.0 L MCH 29.5 MCHC 37.3 H RDW 12.2 RDW Differential 34.7 L Plt Count 204 MPV 10.5 Immature Gran % (Auto) 0.300 Neut % (Auto) 63.3 Lymph % (Auto) 26.2 [place] % (Auto) 9.6 Eos % (Auto) 0.5 Baso % (Auto) 0.1 Absolute Neuts (auto) 4.9 Absolute Lymphs (auto) 2.02 Sodium 140 Potassium 3.1 L Chloride 102 Carbon Dioxide 30.0 Anion Gap 8 BUN 20 H Creatinine 1.25 Estim Creat Clear Calc 72.43 Est GFR (MDRD) Af Amer 85 Est GFR (MDRD) Non-Af 70 BUN/Creatinine Ratio 16.0 Glucose 125 H Calcium 8.7 Total Bilirubin 0.60 AST 19 ALT 29 Alkaline Phosphatase 49 Lactate Dehydrogenase Total Creatine Kinase Troponin I C-React Prot Ext Range Total Protein 7.0 Albumin 3.8 Globulin 3.2 Albumin/Globulin Ratio 1.2 Triglycerides 317 H Cholesterol 229 H LDL Cholesterol 132 H VLDL Cholesterol 63 H HDL Cholesterol 34 L Aldolase MELIA Screen Code Visit Addendum: Dr. Jeffery I personally examined the patient and reviewed the chart. I agree with the above. 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 He has a significant coronary artery disease history in the family with his father and an uncle who recently from a heart attack as well as other family members with early onset cardiac disease. Prior to his office visit he had had troponins drawn which were slightly elevated and he was taken for cardiac cath as an outpatient and had to have a stent placed. He had some upper arm pain and a hematoma at the site of his cardiac cath which was evaluated by cardiology on the day of discharge and felt that he could go home on his aspirin and Brilinta. He is also on quinapril and Norvasc for his chronic hypertension. I had an extensive discussion today about lifestyle modifications. It does seem that he has a significant genetic component to his coronary artery disease however he also states that his diet is not as great as it could be. Also recommended that while tightening up his diet, that he should also start doing some cardiovascular exercises when cleared by cardiology. Inpatient E&M: [id number] Disch Hosp
--- NOTE | 2018-08-07 07:15 | CRPHASE1 ---
Patient Communication Choice Letter Given to Patient:: Yes - Patient considering [facility] or [facility] Guide to Cardiac Rehab Given by ICU Staff Prior to Discharge: No - MAILED TO PATIENT Guide to Cardiac Rehab Mailed to Patient by CR Staff:: Yes Patient Contacted Post Discharge by CR Staff:: Yes - Discussed CR with patient via phone 08/06/2018 [facility] Cardiac Rehab Referral:: [facility] - Patient may consider [facility] also since it is closer to his residence. Phase I Charge:: Level I - Education Risk Factors/Lifestyle Family History: Family History (Last Reviewed 08/05/18 @ 15:54 by Taina Paulson MD) Grandfather Hypertension Father Hypertension CAD (coronary artery disease) Diabetes Mother Hypertension Diabetes Laboratory Values: Cardiac Rehab Phase I Labs Triglycerides 317 mg/dL (-199) H 08/06/18 04:25 Cholesterol 229 mg/dL (200) H 08/06/18 04:25 LDL Cholesterol 132 mg/dL (0-130) H 08/06/18 04:25 HDL Cholesterol 34 mg/dL (40-) L 08/06/18 04:25 Cardiac Rehabilitation Info Cardiac Rehabilitation Program Information: Cardiac Rehabilitation is important for patients like you who are recovering from a heart problem. Cardiac rehabilitation programs are recognized as integral to the continued care of the patient with coronary heart disease. The cardiac rehabilitation program is designed to optimize a patient's physical, psychological, and social functioning. Health pharmacy care coordinator work in cardiac rehabilitation programs and assist you with getting the treatments you need to get stronger and healthier - like exercise, healthy eating habits, and medications. Cardiac rehabilitation has been show to help people with heart problems live longer and have better life enjoyment than people who do not go to cardiac rehabilitation. Please contact the Cardiac Rehabilitation Program at [facility] at in two weeks if you have not heard from them.
--- NOTE | 2018-08-07 07:19 | CRPHASE1_ITS ---
Patient Communication Choice Letter Given to Patient:: Yes - Patient considering [facility] or [facility] Guide to Cardiac Rehab Given by ICU Staff Prior to Discharge: No - MAILED TO PATIENT Guide to Cardiac Rehab Mailed to Patient by CR Staff:: Yes Patient Contacted Post Discharge by CR Staff:: Yes - Discussed CR with patient via phone 08/06/2018 [facility] Cardiac Rehab Referral:: [facility] - Patient may consider [facility] also since it is closer to his residence. Phase I Charge:: Level I - Education Risk Factors/Lifestyle Family History: Family History (Last Reviewed 08/05/18 @ 15:54 by Taina Paulson MD) Grandfather Hypertension Father Hypertension CAD (coronary artery disease) Diabetes Mother Hypertension Diabetes Laboratory Values: Cardiac Rehab Phase I Labs Triglycerides 317 mg/dL (-199) H 08/06/18 04:25 Cholesterol 229 mg/dL (200) H 08/06/18 04:25 LDL Cholesterol 132 mg/dL (0-130) H 08/06/18 04:25 HDL Cholesterol 34 mg/dL (40-) L 08/06/18 04:25 Cardiac Rehabilitation Info Cardiac Rehabilitation Program Information: Cardiac Rehabilitation is important for patients like you who are recovering from a heart problem. Cardiac rehabilitation programs are recognized as integral to the continued care of the patient with coronary heart disease. The cardiac rehabilitation program is designed to optimize a patient's physical, psychological, and social functioning. Health customer care manager work in cardiac rehabilitation programs and assist you with getting the treatments you need to get stronger and healthier - like exercise, healthy eating habits, and medications. Cardiac rehabilitation has been show to help people with heart problems live longer and have better life enjoyment than people who do not go to cardiac rehabilitation. Please contact the Cardiac Rehabilitation Program at [facility] at in two weeks if you have not heard from them.
--- NOTE | 2018-08-07 07:19 | CRPH1.INSTRU ---
General Education CAD and cardiac anatomy and function:: Patient communicates acknowledgment Explanation of diagnoses and procedures:: Patient communicates acknowledgment Sign/Symptoms of DE:: Patient communicates acknowledgment Antiplatelet therapy: Patient communicates acknowledgment Proper use of NTG-SL: Patient communicates acknowledgment Emergency procedures and activation of EMS: Patient communicates acknowledgment Compliance of all prescribed medications: Patient communicates acknowledgment - A Guide to Your Cardiac Rehab booklet mailed to patient 08/06/2018 post discharge
--- NOTE | 2018-08-12 14:55 | CL.I_ITS ---
Patient Name: PATY LEMUS Study Date: 08/05/2018 Performing: Prabhakar Paulson MD Ht: 65 inches 165 cm : 1985 Wt: 192.1 lbs 87 kg Age: 32 Gender: male BSA: 1.94 PROCEDURE(S) PERFORMED [id number]/LV [id number] W OR WO PTCA, SINGLE CORONARY ARTERY CLINICAL PROFILE AND CO-MORBIDITIES Indications: ACS > 24 hrs, New Onset Angina <= 2 months Heart Failure: None Stress/Imaging Stress/Image Study Performed: No CONCLUSIONS Single vessel CAD Successful PTCA/AYO to dRCA (synergy 3.0 x 12mm) RECOMMENDATIONS PCI of dRCA due to ongoing angina Risk factor modification ASA Indefinitley Brilinta for at least 12 months Routine post interventional care DESCRIPTION OF PROCEDURE The patient arrived to the procedure lab. The risks and benefits of the procedure as well as a full d escription of our services here and lack of surgical backup were fully explained to the patient and/o r their significant other prior to the catheterization. The Timeout was completed, verifying the radha ect patient and procedure. The patient's procedural site was prepped and draped in the usual fashion. Local anesthetic was given subcutaneously to right radial region with Lidocaine 2%. Using a modified Seldinger technique, arterial access was obtained via the right radial artery, a 6Fr sheath was inse rted.. Left Coronary Artery selective angiography was performed in multiple views using a 5 Fr. JL3. 5 catheter. Right Coronary Artery selective angiography was then performed in multiple views using a 5 Fr. JR 4 catheter. Left Ventriculography was performed in TRACEY projection using a 5 Fr. JR 4. Simult aneous pressures were then recordedThe images were reviewed and options discussed. A decision was then made to proceed with an Intervention, IVUS or other adjunct procedure. JR 4.0 Guide catheter was inserted and engaged into the RCA. BMW Guide wire was advanced to the R CA. 2.5 X 12 EMERGE Balloon catheter was inserted. PTCA balloon inflated at 6 atms for 12 secs. Angio gram performed post balloon dilatation. 3.0 X 12 SYNERGY Drug Eluting stent was advanced across the l esion in the right coronary, distal. Angiogram performed pre stent deployment. Angiogram performed po st stent deployment. The arterial sheath was pulled and a TR Band was applied for hemostasis 16cc a ir inserted CORONARY ANGIOGRAPHY DOMINANCE: Right Dominant LEFT HEART ASSESSMENT Left Ventricular Ejection Fraction: by LV Gram 60 % LEFT MAIN: Angiographically normal LEFT ANTERIOR DESCENDING ARTERY: Angiographically normal CIRCUMFLEX ARTERY: Angiographically normal RIGHT CORONARY ARTERY: DISTAL RCA: 99 % Stenosis VALVE FINDINGS: No Aortic Valve Stenosis No Mitral Insufficency INTERVENTION INFORMATION LESION SITE: RCA (Distal) Lesion Complexity: High/C, chronic total occlusion: No, lesion at bifurcation: No, thrombus present: Yes, lesion length: 8 mm, culprit lesion: Yes, Previously treated lesion: No Pre Stenosis: 99 % Pre intervention ELEAZAR flow: 1 PROCEDURE: Drug Eluting Stent with pre dilatation. Post Stenosis: 0 % Post intervention ELEAZAR flow: 3 Lesion Devices: Flashpoint 6 Fr JR4.0 100cm Guide Catheter [place]i .014 BMW [place] Straight 190cm Juan Sci EMERGE MR 2.50x12 BALLOON Juan Sci Synergy MR AYO 3.00x12 COMPLICATIONS No Complications PROCEDURE MEDICATIONS Fentanyl 50 mcg IV Versed 1 mg IV Oxygen: 2 L/min via nasal cannula Brilinta 180 mg PO @ 08/05/2018 18:40:52 Heparin given IA 08/05/2018 17:44:09 Heparin 4000 unit(s) IV 08/05/2018 17:55:07 Verapamil 2.5mg, Ntg 200mcgs, 3000 units of Heparin given IA 08/05/2018 17:44:09 SUMMARY OF HEMODYNAMIC DATA Time AIR REST ECG 17:35:33 AO 128/93 (110) SA 17:47:19 LV 147/-6, 13 17:56:20 LV 147/-6, 13 17:56:27 LV 136/-9, 17 17:57:57 LV 148/-6, 20 17:58:04 LVp 144/-11, 17 17:58:14 AOp 142/83 (111) 17:58:19 Signed By Prabhakar Paulson MD On 08/05/2018 19:08:29 Signed By Prabhakar Paulson MD On 08/05/2018 19:06:30 Prabhakar Paulson MD
== END 2018-08-06 11:05 | disposition home or self-care (01) ==
LOC: CLSP 16:50 → ICU 08-06 06:43
PROVIDERS: Internal Medicine; Family Provider Family Medicine; PCP Family Medicine; Referring Provider Specialist; Visit Provider Specialist
DX: I25.10 Atherosclerotic heart disease of native coronary artery without angina pectoris (principal); R07.9 Chest pain, unspecified; I10 Essential (primary) hypertension; E78.5 Hyperlipidemia, unspecified; Z82.49 Family history of ischemic heart disease and other diseases of the circulatory system; I25.2 Old myocardial infarction; Z79.82 Long term (current) use of aspirin; Z79.899 Other long term (current) drug therapy
CPT/HCPCS: 36415; 71046; 80053; 80061; 82085; 82550; 83615; 84484; 85025; 86038; 86140; 92928; 93005; 93458; 99152; J7040; Q9967; A4216; C1725; C1769; C1874; C1887; C1894; C9600; J1327

== ENCOUNTER → 2018-08-12 | Outpatient (CLI) | payer OTHER, SELFPAY ==
[2018-08-05 19:41] VITALS: BMI 31.8
[2018-08-12 07:44] LABS: Anion Gap 7 (5-15); BUN 22 mg/dL (7-18); BUN/Creat Ratio 14.2 RATIO (10-20); Calcium,Total 8.6 mg/dL (8.5-10.1); Chloride 102 mmol/L (98-107); Creatinine, Serum 1.55 mg/dL (0.70-1.30); EST Glomerular Filtration Rate 55 mL/min (>60); Est Glom Filt Rate - Afr Amer 66 mL/min (>60); Glucose 104 mg/dL (74-106); Potassium 3.7 mmol/L (3.5-5.1); Sodium Level 139 mmol/L (136-145)
[2018-08-12 08:42] LABS: Hematocrit 40.1 % (40-54); Mean Corpuscular Hgb 27.8 pg (27.0-32.0); Mean Corpuscular Volume 79.7 fL (80-94); Mean Platelet Vol. 10.7 fl (6.2-12.0); Platelet Count 203 K/mm3 (150-450); RBC Distribution Width CV 12.2 % (11.6-14.6); RBC Distribution Width SD 34.7 fl (35.1-43.9); Red Blood Count 5.03 M/mm3 (4.6-6.2); White Blood Count 7.7 K/mm3 (4.4-11.0)
[2018-08-12 08:43] LABS: Mean Corp Hgb Conc 34.9 g/gl (32-36); Scan Indicated on CBC? Y/N NO
[2018-08-12 08:54] LABS: BNP,B-Type NATRIURETIC PEPTIDE 7.3 pg/mL (0-100)
== END | disposition home or self-care (01) ==
LOC: LAB 07:03
PROVIDERS: Family Provider Family Medicine; PCP Family Medicine; Referring Provider Nurse Practitioner Family; Visit Provider Nurse Practitioner Family
DX: R06.02 Shortness of breath (principal); I25.10 Atherosclerotic heart disease of native coronary artery without angina pectoris; Z95.5 Presence of coronary angioplasty implant and graft
CPT/HCPCS: 36415; 80048; 83880; 85027

== ENCOUNTER → 2018-09-18 06:13 | Outpatient (CLI) | payer OTHER, SELFPAY ==
[2018-08-24 15:00] VITALS: BMI 32.3
[2018-09-18 09:57] LABS: Anion Gap 6 (5-15); BUN 19 mg/dL (7-18); Calcium,Total 8.8 mg/dL (8.5-10.1); Chloride 102 mmol/L (98-107); Cholesterol 214 mg/dL (200); Creatinine, Serum 1.27 mg/dL (0.70-1.30); EST Glomerular Filtration Rate 69 mL/min (>60); Est Glom Filt Rate - Afr Amer 83 mL/min (>60); Glucose 80 mg/dL (74-106); High Density Lipoprotein 41 mg/dL; Potassium 3.8 mmol/L (3.5-5.1); Sodium Level 139 mmol/L (136-145); Triglycerides 168 mg/dL; Very Low Density Lipoprotein 34 mg/dL (5-40)
== END ==
PROVIDERS: Family Provider Family Medicine; PCP Family Medicine; Referring Provider Family Medicine; Visit Provider Family Medicine
DX: I10 Essential (primary) hypertension (principal); I25.10 Atherosclerotic heart disease of native coronary artery without angina pectoris
CPT/HCPCS: 36415; 80048; 80061

== ENCOUNTER → 2018-10-02 06:06 | Outpatient (CLI) | payer OTHER, SELFPAY ==
[2018-08-24 15:00] VITALS: BMI 32.3
[2018-10-02 07:16] LABS: CRP, High Sensitivity Cardiac 3.17 mg/L; Cholesterol 155 mg/dL (200); Glucose 88 mg/dL (74-106); High Density Lipoprotein 43 mg/dL; Triglycerides 120 mg/dL; Very Low Density Lipoprotein 24 mg/dL (5-40)
[2018-10-03 14:07] LABS: CHOLESTEROL TOTAL 157 mg/dL (100-199); HDL-C 39 mg/dL (>39); HDL-P TOTAL 29.5 umol/L (>=30.5); SMALL LDL-P 905 nmol/L (<=527); TRIGLYCERIDES 110 mg/dL (0-149)
[2018-10-04 17:01] LABS: INSULIN RESISTANCE SCORE 52 (<=45); LDL SIZE 20.2 nm (>20.5); LDL-C 96 mg/dL (0-99); LDL-P 1477 nmol/L (<1000)
[2018-10-06 14:01] LABS: Lipoprotein A 112.2 nmol/L (<75.0)
== END ==
PROVIDERS: Family Provider Family Medicine; PCP Family Medicine; Referring Provider Family Medicine; Visit Provider Family Medicine
DX: I25.10 Atherosclerotic heart disease of native coronary artery without angina pectoris (principal)
CPT/HCPCS: 36415; 80061; 82947; 83695; 83704; 86141

== ENCOUNTER 2018-10-22 12:20 | Emergency (ER) | payer OTHER, SELFPAY ==
[2018-08-24 15:00] VITALS: BMI 32.3
[2018-10-22 12:21] VITALS: BP 140/92; PULSE 87; RESP 24; TEMP 37.1; O2SAT 100; BMI 14.8
--- NOTE | 2018-10-22 12:32 | EKG12_ITS ---
Test Reason : CP Blood Pressure : / mmHG Vent. Rate : 081 BPM Atrial Rate : 081 BPM P-R Int : 170 ms QRS Dur : 096 ms QT Int : 368 ms P-R-T Axes : 049 061 018 degrees QTc Int : 427 ms Normal sinus rhythm Normal ECG Confirmed by TERESITA TERRY, SPENCER ([id number]), index editor HILLARY JUNIOR ([id number]) on 10/26/2018 12:57:54 PM Referred By: Mack Neff Confirmed By:TORITO LO MD
--- NOTE | 2018-10-22 12:33 | ED.DCSUM_ITS ---
- ER Visit Summary Date of Service: 10/22/18 Chief Complaint: Chest pain History of Present Illness: The patient is a 33 M who presents with chest pain that began today. Patient states the pain is been constant. Patient states pain is over the left upper chest. Patient describes the pain as dull. Patient states his pain is different from the pain he had prior to his stent. Patient states nothing makes the pain better or worse. Patient denies any nausea or vomiting. Patient denies any shortness of breath or diaphoresis. Patient denies any cough or fever. Patient states he does have some pain in his back in a similar area. Physical Examination: Vital signs are stable. Patient is afebrile. Patient is in no acute distress. Oral mucosa is pink and moist. Neck is supple. Trachea is midline. There is no JVD noted. Heart was regular rate and rhythm. Lungs are clear and equal bilateral. Abdomen is soft. Bowel sounds are normal. There is no tenderness. There is no guarding noted. Skin is warm dry. Cranial nerves II through XII are intact. There are no focal motor or sensory deficits noted. The remaining physical exam is within normal limits. Test Results: EKG showed a normal sinus rhythm with a rate of 81. There are no acute ST or T wave changes. This was interpreted by myself. CBC, basic metabolic profile, and troponin were obtained and were normal. Portable chest x-ray was obtained. There is no acute cardiopulmonary process. Emergency Department Course and Treatment: Patient was ordered aspirin but he refused. He stated that he took 81 mg of aspirin and Plavix this morning. Patient does not want any further aspirin. Patient was feeling better on reevaluation. Patient was advised of his test results. Patient has a HEART score of 2. Patient was instructed to follow-up with his primary care physician in 5 to 7 days. Patient understood and was agreeable with the plan. All questions were answered. Disposition: Discharge home Impression: Chest pain This note was generated with [employer] dictation software. It may contain incorrect words, spelling, and punctuation that were not noted in review of the chart prior to signing ED Disposition - Plan for ED Patient: Disposition: Home or Assisted Living Diagnosis: Chest pain Instructions: CHEST PAIN, Uncertain Cause Referrals: Mack Neff MD [Primary Care Provider] - 5-7 Days
--- NOTE | 2018-10-22 12:35 | RAD_ITS ---
STUDY: X-RAY CHEST REASON FOR EXAM: Male, 33 years old. Chest pain. TECHNIQUE: Single AP portable view of the chest. COMPARISON: Comparison is made with prior study dated August 05, 2018. FINDINGS: EKG electrodes are seen. The lungs are clear and expanded. There is no demonstrated pleural abnormality. Normal size heart. Normal mediastinum and donya. Normal visualized pulmonary arteries. Normal visualized aortic arch and descending thoracic aorta. Normal visualized thoracic spine. Normal visualized ribs, clavicles, and shoulders. There is no demonstrated abnormality of the visualized soft tissue structures of the upper abdomen. RAD/Chest 1 View (Portable) IMPRESSION: Normal x-ray examination of the chest. Electronically Signed: Luis Felipe Bradford, at 13:05 EDT , Service support ,
[2018-10-22 12:40] VITALS: BP 143/99; PULSE 79; RESP 13; O2SAT 98
[2018-10-22 12:45] LABS: Absolute Neutrophil Count 4.6 X10^3/uL (2.0-7.7); Basophil# 0.02 X10^3/uL; Basophil% 0.3 % (0-1); Eosinophil# 0.03 X10^3/uL; Eosinophils% 0.4 % (0-5); Hemoglobin 15.7 g/dL (13.0-16.5); Lymphocyte % 28.6 % (19-41); Mean Corp Hgb Conc 35.7 g/dL (32-36); Mean Corpuscular Hgb 29.6 pg (27.0-32.0); Mean Platelet Vol. 10.6 fl (6.2-12.0); Monocyte# 0.37 X10^3/uL; Monocyte% 5.3 % (0-10); NRBC Flagged by Analyzer 0 % (0-5); Neutrophil # 4.57 X10^3/uL (2.7-7.7); Neutrophil % 65.3 % (47-70); Platelet Count 195 K/mm3 (150-450); RBC Distribution Width CV 11.6 % (11.6-14.6); RBC Distribution Width SD 35.2 fl (35.1-43.9)
[2018-10-22 13:01] LABS: Anion Gap 7 (5-15); BUN 19 mg/dL (7-18); BUN/Creat Ratio 14.3 RATIO (10-20); Calcium,Total 9.2 mg/dL (8.5-10.1); Chloride 100 mmol/L (98-107); Creatinine, Serum 1.33 mg/dL (0.70-1.30); EST Glomerular Filtration Rate 65 mL/min (>60); Est Glom Filt Rate - Afr Amer 79 mL/min (>60); Estimated Creatinine Clearance 43.02 ml/min; Glucose 92 mg/dL (74-106); Potassium 3.4 mmol/L (3.5-5.1); Sodium Level 136 mmol/L (136-145)
[2018-10-22 13:21] VITALS: BP 120/84; PULSE 71; RESP 16; O2SAT 100
[2018-10-22 13:27] VITALS: BP 120/84; PULSE 71; RESP 16; O2SAT 100
== END 2018-10-22 13:32 | disposition home or self-care (01) ==
PROVIDERS: Emergency Provider Emergency Medicine; Family Provider Family Medicine; PCP Family Medicine
DX: R07.9 Chest pain, unspecified (principal); M54.9 Dorsalgia, unspecified; I25.10 Atherosclerotic heart disease of native coronary artery without angina pectoris; I10 Essential (primary) hypertension; Z95.5 Presence of coronary angioplasty implant and graft; Z82.49 Family history of ischemic heart disease and other diseases of the circulatory system
CPT/HCPCS: 71045; 80048; 84484; 85025; 93005; 99284; A4216

== ENCOUNTER → 2018-11-04 06:52 | Outpatient (CLI) | payer OTHER, SELFPAY ==
[2018-10-22 12:21] VITALS: BMI 14.8
[2018-11-04 09:16] LABS: Anion Gap 8 (5-15); BUN 19 mg/dL (7-18); BUN/Creat Ratio 13.9 RATIO (10-20); CRP, High Sensitivity Cardiac 2.31 mg/L; Calcium,Total 8.8 mg/dL (8.5-10.1); Chloride 103 mmol/L (98-107); Cholesterol 159 mg/dL (200); Creatinine, Serum 1.37 mg/dL (0.70-1.30); EST Glomerular Filtration Rate 63 mL/min (>60); Est Glom Filt Rate - Afr Amer 76 mL/min (>60); Glucose 83 mg/dL (74-106); High Density Lipoprotein 41 mg/dL; Magnesium 1.9 mg/dL (1.6-2.6); Potassium 3.9 mmol/L (3.5-5.1); Sodium Level 141 mmol/L (136-145); Triglycerides 102 mg/dL; Very Low Density Lipoprotein 20 mg/dL (5-40)
[2018-11-04 09:32] LABS: AST(SGOT) 22 U/L (15-37); Alanine Aminotransfer ALT/SGPT 42 U/L (16-61); Albumin, Serum 4.3 g/dL (3.2-5.0); Alkaline Phosphatase 46 U/L (45-117); Bilirubin, Direct 0.14 mg/dL (0.00-0.30); Globulin 3.2 g/dL (2.2-4.2); Protein, Total 7.5 g/dL (6.4-8.2)
== END ==
PROVIDERS: Specialist; Family Provider Family Medicine; PCP Family Medicine; Referring Provider Family Medicine; Visit Provider Family Medicine
DX: I25.10 Atherosclerotic heart disease of native coronary artery without angina pectoris (principal); Z95.5 Presence of coronary angioplasty implant and graft
CPT/HCPCS: 36415; 80048; 80061; 80076; 83735; 86141

== ENCOUNTER 2018-11-18 19:14 | Emergency (ER) | payer OTHER, SELFPAY ==
[2018-11-18 19:15] VITALS: BP 163/96; PULSE 116; RESP 18; TEMP 36.7; O2SAT 100; BMI 32.1
--- NOTE | 2018-11-18 19:31 | EKG12_ITS ---
Test Reason : CP Blood Pressure : / mmHG Vent. Rate : 113 BPM Atrial Rate : 113 BPM P-R Int : 164 ms QRS Dur : 098 ms QT Int : 342 ms P-R-T Axes : 049 073 011 degrees QTc Int : 469 ms Sinus tachycardia Possible Left atrial enlargement Borderline ECG Confirmed by TERESITA TERRY, SPENCER ([id number]), editor publications HILLARY JUNIOR ([id number]) on 11/20/2018 11:43:52 AM Referred By: KADI/LINDA Confirmed By:TORITO LO MD
--- NOTE | 2018-11-18 19:31 | RAD_ITS ---
STUDY: X-RAY CHEST REASON FOR EXAM: Male, 33 years old. Chest pain TECHNIQUE: Single AP portable view of the chest. COMPARISON: October 22, 2018 FINDINGS: The lungs are clear and expanded. There is no demonstrated pleural abnormality. Normal size heart. Normal mediastinum and donya. Normal visualized pulmonary arteries. Normal visualized aortic arch and descending thoracic aorta. Normal visualized thoracic spine. Normal visualized ribs, clavicles, and shoulders. There is no demonstrated abnormality of the visualized soft tissue structures of the upper abdomen. RAD/Chest 1 View (Portable) IMPRESSION: Normal x-ray examination of the chest. Electronically Signed: Daniel Lynch MD at 20:16 EDT , Service support ,
[2018-11-18 20:38] VITALS: O2SAT 100
[2018-11-18 20:47] LABS: Absolute Lymphocyte Count 1.79 X10^3/uL (0.83-4.51); Absolute Neutrophil Count 4.6 X10^3/uL (2.0-7.7); Basophil# 0.01 X10^3/uL; Basophil% 0.1 % (0-1); Eosinophil# 0.03 X10^3/uL; Eosinophils% 0.4 % (0-5); Hematocrit 42.9 % (40-54); Hemoglobin 15.2 g/dL (13.0-16.5); Lymphocyte # 1.79 X10^3/ul (4.0); Lymphocyte % 25.6 % (19-41); Mean Corp Hgb Conc 35.4 g/dL (32-36); Mean Corpuscular Hgb 29.8 pg (27.0-32.0); Mean Corpuscular Volume 84.1 fL (80-94); Mean Platelet Vol. 10.7 fl (6.2-12.0); Monocyte# 0.56 X10^3/uL; NRBC Flagged by Analyzer 0 % (0-5); Neutrophil % 65.8 % (47-70); Platelet Count 172 K/mm3 (150-450); RBC Distribution Width CV 11.5 % (11.6-14.6); RBC Distribution Width SD 35.2 fl (35.1-43.9)
[2018-11-18 20:56] LABS: International Normalized Ratio 1.1; Prothrombin Time (Protime)PT. 13.7 SECONDS (11.7-14.9)
[2018-11-18 21:02] LABS: Anion Gap 6 (5-15); BUN 23 mg/dL (7-18); Calcium,Total 9.2 mg/dL (8.5-10.1); Chloride 100 mmol/L (98-107); Creatinine, Serum 1.44 mg/dL (0.70-1.30); EST Glomerular Filtration Rate 59 mL/min (>60); Est Glom Filt Rate - Afr Amer 72 mL/min (>60); Estimated Creatinine Clearance 59.95 ml/min; Glucose 91 mg/dL (74-106); Potassium 3.3 mmol/L (3.5-5.1); Sodium Level 134 mmol/L (136-145)
--- NOTE | 2018-11-18 21:16 | ED.VISSUMM ---
- ER Visit Summary Date of Service: 11/18/18 Chief Complaint: Palpitations History of Present Illness: The patient is a 33 M with a history of coronary disease and stent placed in July of this year. He is on aspirin and Plavix. He presents today for a high heart rate and palpitations. He noted this this evening. He never had this before. He feels tired but has no other elated symptoms like shortness of breath, sweats, nausea Physical Examination: Afebrile and vital signs unremarkable except for heart rate of 116. Patient is alert and oriented. No acute distress. Heart regular. Lungs clear. Skin normal. Extremities nontender with no edema. Test Results: EKG shows sinus rhythm at a rate of 113. Chest x-ray normal. CBC normal. Potassium 3.3, BUN 23, creatinine 1.44, stable. Troponin normal. Emergency Department Course and Treatment: Patient treated with aspirin and placed on the monitor. Work-up as above was all fairly unremarkable and/or stable. I advised delta troponin. Patient had family obligations and had to leave. I advised that his symptoms may be from heart palpitations. 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 He signed out AGAINST MEDICAL ADVICE. Treatment Plan: As above Disposition: AGAINST MEDICAL ADVICE Impression: 1. Palpitations This note was generated with [employer] dictation software. It may contain incorrect words, spelling, and punctuation that were not noted in review of the chart prior to signing ED Disposition - Plan for ED Patient: Disposition: Home or Assisted Living Instructions: Palpitations Referrals: Taina Paulson MD [STAFF PHYSICIAN] -
--- NOTE | 2018-11-18 21:16 | ED.DEP ---
ED Disposition - Plan for ED Patient: Instructions: Palpitations Referrals: Taina Paulson MD [STAFF PHYSICIAN] -
[2018-11-18 21:26] VITALS: BP 119/88; PULSE 88; RESP 16; O2SAT 99
== END 2018-11-18 21:28 | disposition left against medical advice (07) ==
LOC: ED 20:50
PROVIDERS: Emergency Provider Emergency Medicine; Family Provider Family Medicine; PCP Family Medicine
DX: R00.2 Palpitations (principal); I10 Essential (primary) hypertension; I25.10 Atherosclerotic heart disease of native coronary artery without angina pectoris; Z95.5 Presence of coronary angioplasty implant and graft; Z79.02 Long term (current) use of antithrombotics/antiplatelets; Z79.82 Long term (current) use of aspirin
CPT/HCPCS: 71045; 80048; 84484; 85025; 85610; 93005; 99282; A4216

== ENCOUNTER → 2018-11-21 07:49 | Outpatient (CLI) | payer OTHER, SELFPAY ==
[2018-11-18 19:15] VITALS: BMI 32.1
== END ==
PROVIDERS: Family Provider Family Medicine; PCP Family Medicine; Referring Provider Family Medicine; Visit Provider Family Medicine
DX: I25.10 Atherosclerotic heart disease of native coronary artery without angina pectoris (principal)
CPT/HCPCS: 36415

== ENCOUNTER → 2018-12-01 09:12 | Outpatient (CLI) | payer OTHER, SELFPAY ==
[2018-12-01 09:13] VITALS: BMI 32.1
[2018-12-01 10:04] LABS: Anion Gap 5 (5-15); BUN 18 mg/dL (7-18); BUN/Creat Ratio 13.6 RATIO (10-20); Calcium,Total 9.1 mg/dL (8.5-10.1); Chloride 102 mmol/L (98-107); Creatinine, Serum 1.32 mg/dL (0.70-1.30); EST Glomerular Filtration Rate 66 mL/min (>60); Est Glom Filt Rate - Afr Amer 79 mL/min (>60); Glucose 94 mg/dL (74-106); Potassium 3.9 mmol/L (3.5-5.1); Sodium Level 138 mmol/L (136-145)
[2018-12-01 17:40] LABS: CPK Total, Creatine Kinase 698 U/L (39-308)
[2018-12-03 17:04] LABS: AST(SGOT) 38 U/L (15-37); LDH 211 U/L (87-241)
== END ==
PROVIDERS: Family Provider Family Medicine; PCP Family Medicine; Referring Provider Family Medicine; Visit Provider Family Medicine
DX: I25.10 Atherosclerotic heart disease of native coronary artery without angina pectoris (principal); Z95.5 Presence of coronary angioplasty implant and graft
CPT/HCPCS: 36415; 80048; 82550; 83615; 83874; 84450; 84484

== ENCOUNTER → 2018-12-30 16:03 | Outpatient (CLI) | payer OTHER, SELFPAY ==
[2018-12-30 15:05] VITALS: BMI 31.0
[2018-12-30 17:33] LABS: AST(SGOT) 31 U/L (15-37); Anion Gap 6 (5-15); BUN 20 mg/dL (7-18); CPK Total, Creatine Kinase 345 U/L (39-308); Calcium,Total 9.1 mg/dL (8.5-10.1); Chloride 103 mmol/L (98-107); Creatinine, Serum 1.33 mg/dL (0.70-1.30); EST Glomerular Filtration Rate 65 mL/min (>60); Est Glom Filt Rate - Afr Amer 79 mL/min (>60); Glucose 112 mg/dL (74-106); LDH 217 U/L (87-241); Potassium 3.6 mmol/L (3.5-5.1); Sodium Level 137 mmol/L (136-145)
[2018-12-30 17:41] LABS: AST(SGOT) 32 U/L (15-37); Alanine Aminotransfer ALT/SGPT 44 U/L (16-61); Albumin, Serum 4.3 g/dL (3.2-5.0); Alkaline Phosphatase 68 U/L (45-117); Bilirubin, Direct 0.08 mg/dL (0.00-0.30); Globulin 3.1 g/dL (2.2-4.2); Protein, Total 7.4 g/dL (6.4-8.2)
[2019-01-01 16:08] LABS: Endomysial Antibody IgA Negative (Negative)
[2019-01-03 03:08] LABS: Clam <0.10 kU/L (Class 0); Codfish <0.10 kU/L (Class 0); Corn <0.10 kU/L (Class 0); Egg, White <0.10 kU/L (Class 0); Milk (Cow) <0.10 kU/L (Class 0); Peanut <0.10 kU/L (Class 0); SCALLOP <0.10 kU/L (Class 0); SESAME SEED <0.10 kU/L (Class 0); Shrimp <0.10 kU/L (Class 0); Soybean <0.10 kU/L (Class 0); Walnut, (Food) <0.10 kU/L (Class 0); Wheat <0.10 kU/L (Class 0)
[2019-01-04 10:34] LABS: Almond <0.10 kU/L (Class 0)
[2019-01-04 13:19] LABS: Deamidated Gliadin IgA 9 units (0-19); Deamidated Gliadin IgG 3 units (0-19); Immunoglobulin A 113 mg/dL (90-386); t-Transglutaminase IgA <2 U/mL (0-3)
== END ==
PROVIDERS: Specialist; Family Provider Family Medicine; PCP Family Medicine; Referring Provider Family Medicine; Visit Provider Family Medicine
DX: R10.13 Epigastric pain (principal); R07.9 Chest pain, unspecified; I25.10 Atherosclerotic heart disease of native coronary artery without angina pectoris; E78.5 Hyperlipidemia, unspecified
CPT/HCPCS: 36415; 80048; 80076; 82550; 82784; 83516; 83615; 84450; 84484; 86003; 86255

== ENCOUNTER → 2019-01-11 06:54 | Outpatient (CLI) | payer OTHER, SELFPAY ==
[2018-12-30 15:05] VITALS: BMI 31.0
[2019-01-11 07:52] LABS: CRP, High Sensitivity Cardiac 3.42 mg/L
[2019-01-13 14:58] LABS: CHOLESTEROL TOTAL 172 mg/dL (100-199); HDL-C 41 mg/dL (>39); HDL-P TOTAL 26.5 umol/L (>=30.5); SMALL LDL-P 895 nmol/L (<=527); TRIGLYCERIDES 89 mg/dL (0-149)
[2019-01-13 15:42] LABS: INSULIN RESISTANCE SCORE 27 (<=45); LDL-C 113 mg/dL (0-99); LDL-P 1580 nmol/L (<1000)
== END ==
LOC: LAB.FUTURE 06:56 → LAB 06:58
PROVIDERS: Family Provider Family Medicine; PCP Family Medicine; Referring Provider Family Medicine; Visit Provider Family Medicine
DX: I25.10 Atherosclerotic heart disease of native coronary artery without angina pectoris (principal)
CPT/HCPCS: 36415; 80061; 83704; 86141

== ENCOUNTER → 2019-01-21 16:32 | Outpatient (CLI) | payer OTHER, SELFPAY ==
[2018-12-30 15:05] VITALS: BMI 31.0
[2019-01-21 17:39] LABS: Absolute Lymphocyte Count 1.98 X10^3/uL (0.83-4.51); Absolute Neutrophil Count 3.7 X10^3/uL (2.0-7.7); Basophil# 0.02 X10^3/uL; Basophil% 0.3 % (0-1); Eosinophil# 0.06 X10^3/uL; Hemoglobin 14.5 g/dL (13.0-16.5); Lymphocyte # 1.98 X10^3/ul (4.0); Mean Corp Hgb Conc 35.4 g/dL (32-36); Mean Corpuscular Hgb 29.7 pg (27.0-32.0); Mean Platelet Vol. 11.3 fl (6.2-12.0); Monocyte# 0.38 X10^3/uL; Monocyte% 6.1 % (0-10); NRBC Flagged by Analyzer 0 % (0-5); Neutrophil # 3.73 X10^3/uL (2.7-7.7); Neutrophil % 60.4 % (47-70); Platelet Count 190 K/mm3 (150-450); RBC Distribution Width CV 11.9 % (11.6-14.6); RBC Distribution Width SD 35.8 fl (35.1-43.9); Red Blood Count 4.88 M/mm3 (4.6-6.2); White Blood Count 6.2 K/mm3 (4.4-11.0)
[2019-01-21 18:05] LABS: CRP, High Sensitivity Cardiac 3.36 mg/L
== END ==
PROVIDERS: Family Provider Family Medicine; PCP Family Medicine; Referring Provider Family Medicine; Visit Provider Family Medicine
DX: I25.10 Atherosclerotic heart disease of native coronary artery without angina pectoris (principal)
CPT/HCPCS: 36415; 85025; 86141

== ENCOUNTER → 2019-05-13 17:56 | Outpatient (CLI) | payer OTHER, SELFPAY ==
[2018-12-30 15:05] VITALS: BMI 31.0
[2019-05-13 18:12] LABS: Absolute Lymphocyte Count 2.66 X10^3/uL (0.83-4.51); Absolute Neutrophil Count 3.3 X10^3/uL (2.0-7.7); Basophil# 0.01 X10^3/uL; Basophil% 0.2 % (0-1); Eosinophil# 0.07 X10^3/uL; Eosinophils% 1.1 % (0-5); Hematocrit 44.3 % (40-54); Hemoglobin 15.4 g/dL (13.0-16.5); Lymphocyte # 2.66 X10^3/ul (4.0); Lymphocyte % 40.8 % (19-41); Mean Corp Hgb Conc 34.8 g/dL (32-36); Mean Corpuscular Hgb 29.3 pg (27.0-32.0); Mean Corpuscular Volume 84.2 fL (80-94); Mean Platelet Vol. 10.6 fl (6.2-12.0); Monocyte# 0.47 X10^3/uL; Monocyte% 7.2 % (0-10); NRBC Flagged by Analyzer 0 % (0-5); Neutrophil % 50.5 % (47-70); Platelet Count 182 K/mm3 (150-450); RBC Distribution Width CV 11.4 % (11.6-14.6); RBC Distribution Width SD 34.5 fl (35.1-43.9); Red Blood Count 5.26 M/mm3 (4.6-6.2); White Blood Count 6.5 K/mm3 (4.4-11.0)
[2019-05-13 18:59] LABS: Vitamin D,25 Hydroxy 30.4 ng/mL
[2019-05-13 19:01] LABS: Anion Gap 6 (5-15); BUN 28 mg/dL (7-18); BUN/Creat Ratio 21.1 RATIO (10-20); CRP, High Sensitivity Cardiac 2.48 mg/L; Calcium,Total 8.8 mg/dL (8.5-10.1); Chloride 102 mmol/L (98-107); Creatinine, Serum 1.33 mg/dL (0.70-1.30); EST Glomerular Filtration Rate 65 mL/min (>60); Est Glom Filt Rate - Afr Amer 78 mL/min (>60); Glucose 90 mg/dL (74-106); Potassium 4.1 mmol/L (3.5-5.1); Sodium Level 135 mmol/L (136-145)
== END ==
PROVIDERS: PCP Family Medicine; Referring Provider Family Medicine; Visit Provider Family Medicine
DX: I25.10 Atherosclerotic heart disease of native coronary artery without angina pectoris (principal); E55.9 Vitamin D deficiency, unspecified
CPT/HCPCS: 36415; 80048; 82306; 85025; 86141

== ENCOUNTER → 2019-12-20 12:11 | Outpatient (CLI) | payer OTHER, SELFPAY ==
[2018-12-30 15:05] VITALS: BMI 31.0
[2019-12-20 16:02] LABS: Anion Gap 4 (5-15); BUN 17 mg/dL (7-18); BUN/Creat Ratio 14.4 RATIO (10-20); Calcium,Total 9.1 mg/dL (8.5-10.1); Chloride 100 mmol/L (98-107); Creatinine, Serum 1.18 mg/dL (0.70-1.30); EST Glomerular Filtration Rate 74 mL/min (>60); Est Glom Filt Rate - Afr Amer 90 mL/min (>60); Glucose 84 mg/dL (74-106); Sodium Level 138 mmol/L (136-145)
[2019-12-20 16:42] LABS: Osmolality, Urine 199 mOsm/KG
[2019-12-20 16:43] LABS: Osmolality, Serum 290 mOsm/KG (275-295)
== END ==
PROVIDERS: PCP Family Medicine; Visit Provider Family Medicine
DX: R42 Dizziness and giddiness (principal)
CPT/HCPCS: 36415; 80048; 83930; 83935

== ENCOUNTER → 2020-03-07 08:09 | Outpatient (CLI) | payer OTHER, SELFPAY ==
[2020-03-07 08:52] LABS: Microalbumin:Creatinine Ratio 23.7 mg/g CRE (<30 mg/g CRE)
[2020-03-07 09:10] LABS: ALB/GLOB Ratio 1.4 RATIO (0.9-2.4); AST(SGOT) 22 U/L (15-37); Alanine Aminotransfer ALT/SGPT 30 U/L (16-61); Albumin, Serum 4.2 g/dL (3.2-5.0); Alkaline Phosphatase 53 U/L (45-117); Anion Gap 1 (5-15); BUN 20 mg/dL (7-18); BUN/Creat Ratio 15.9 RATIO (10-20); CRP < 2.90 mg/L (0.0-3.0); Calcium,Total 8.9 mg/dL (8.5-10.1); Chloride 104 mmol/L (98-107); Cholesterol 230 mg/dL (200); Creatinine, Serum 1.26 mg/dL (0.70-1.30); EST Glomerular Filtration Rate 69 mL/min (>60); Est Glom Filt Rate - Afr Amer 83 mL/min (>60); Globulin 3.1 g/dL (2.2-4.2); Glucose 94 mg/dL (74-106); High Density Lipoprotein 51 mg/dL; Potassium 4.1 mmol/L (3.5-5.1); Protein, Total 7.3 g/dL (6.4-8.2); Sodium Level 138 mmol/L (136-145); Triglycerides 112 mg/dL; Very Low Density Lipoprotein 22 mg/dL (5-40)
[2020-03-07 11:49] LABS: CRP, High Sensitivity Cardiac 1.67 mg/L
[2020-03-07 13:22] LABS: Absolute Lymphocyte Count 2.23 X10^3/uL (0.83-4.51); Absolute Neutrophil Count 2.8 X10^3/uL (2.0-7.7); Basophil# 0.01 X10^3/uL; Basophil% 0.2 % (0-1); Eosinophil# 0.04 X10^3/uL; Eosinophils% 0.7 % (0-5); Hematocrit 46.9 % (40-54); Hemoglobin 16.3 g/dL (13.0-16.5); Lymphocyte # 2.23 X10^3/ul (4.0); Lymphocyte % 41.3 % (19-41); Mean Corp Hgb Conc 34.8 g/dL (32-36); Mean Corpuscular Hgb 29.7 pg (27.0-32.0); Mean Corpuscular Volume 85.4 fL (80-94); Mean Platelet Vol. 11.2 fl (6.2-12.0); Monocyte# 0.32 X10^3/uL; Monocyte% 5.9 % (0-10); NRBC Flagged by Analyzer 0 % (0-5); Neutrophil # 2.78 X10^3/uL (2.7-7.7); Neutrophil % 51.5 % (47-70); Platelet Count 173 K/mm3 (150-450); RBC Distribution Width CV 11.6 % (11.6-14.6); RBC Distribution Width SD 35.5 fl (35.1-43.9); Red Blood Count 5.49 M/mm3 (4.6-6.2); White Blood Count 5.4 K/mm3 (4.4-11.0)
== END ==
PROVIDERS: PCP Family Medicine; Referring Provider Family Medicine; Visit Provider Family Medicine
DX: I25.10 Atherosclerotic heart disease of native coronary artery without angina pectoris (principal); I10 Essential (primary) hypertension; E78.5 Hyperlipidemia, unspecified
CPT/HCPCS: 36415; 80053; 80061; 82043; 82570; 85025; 86140; 86141

== ENCOUNTER → 2020-07-04 17:56 | Outpatient (CLI) | payer OTHER, SELFPAY | PROVIDERS: PCP Family Medicine; Referring Provider Family Medicine; Visit Provider Family Medicine | DX: Z20.822 Contact with and (suspected) exposure to COVID-19 (principal) | CPT/HCPCS: 87635; U0002 ==

== ENCOUNTER → 2020-12-05 11:38 | Outpatient (CLI) | payer OTHER, SELFPAY ==
[2020-12-05 13:35] LABS: Troponin-I HS 8 pg/mL (3.0-78.0)
== END ==
PROVIDERS: PCP Family Medicine; Referring Provider Family Medicine; Visit Provider Family Medicine
DX: Z98.890 Other specified postprocedural states (principal)
CPT/HCPCS: 36415; 84484

== ENCOUNTER → 2021-03-05 12:40 | Outpatient (CLI) | payer OTHER, SELFPAY ==
[2021-03-05 13:02] LABS: Absolute Lymphocyte Count 2.19 X10^3/uL (0.83-4.51); Absolute Neutrophil Count 2.8 X10^3/uL (2.0-7.7); Basophil# 0.02 X10^3/uL; Basophil% 0.4 % (0-1); Eosinophil# 0.03 X10^3/uL; Eosinophils% 0.6 % (0-5); Hematocrit 43.9 % (40-54); Hemoglobin 15.4 g/dL (13.0-16.5); Lymphocyte # 2.19 X10^3/ul (0.83-4.51); Lymphocyte % 40.7 % (19-41); Mean Corp Hgb Conc 35.1 g/dL (32-36); Mean Corpuscular Hgb 29.4 pg (27.0-32.0); Mean Corpuscular Volume 83.9 fL (80-94); Mean Platelet Vol. 9.7 fl (6.2-12.0); Monocyte# 0.35 X10^3/uL; Monocyte% 6.5 % (0-10); NRBC Flagged by Analyzer 0 % (0-5); Neutrophil # 2.78 X10^3/uL (2.7-7.7); Neutrophil % 51.6 % (47-70); Platelet Count 185 K/mm3 (150-450); RBC Distribution Width CV 11.8 % (11.6-14.6); RBC Distribution Width SD 35.8 fl (35.1-43.9); Red Blood Count 5.23 M/mm3 (4.6-6.2); White Blood Count 5.4 K/mm3 (4.4-11.0)
[2021-03-05 13:41] LABS: ALB/GLOB Ratio 1.2 RATIO (0.9-2.4); AST(SGOT) 24 U/L (15-37); Alanine Aminotransfer ALT/SGPT 39 U/L (16-61); Alkaline Phosphatase 60 U/L (45-117); Anion Gap 5 (5-15); BUN 14 mg/dL (7-18); BUN/Creat Ratio 11.8 RATIO (10-20); CRP, High Sensitivity Cardiac 3.99 mg/L; Calcium,Total 8.8 mg/dL (8.5-10.1); Chloride 103 mmol/L (98-107); Cholesterol 237 mg/dL (200); Creatinine, Serum 1.19 mg/dL (0.70-1.30); EST Glomerular Filtration Rate 73 mL/min (>60); Est Glom Filt Rate - Afr Amer 88 mL/min (>60); Globulin 3.4 g/dL (2.2-4.2); Glucose 93 mg/dL (74-106); High Density Lipoprotein 55 mg/dL; Protein, Total 7.4 g/dL (6.4-8.2); Sodium Level 140 mmol/L (136-145); Triglycerides 106 mg/dL; Very Low Density Lipoprotein 21 mg/dL (5-40)
== END ==
PROVIDERS: PCP Family Medicine; Referring Provider Family Medicine; Visit Provider Family Medicine
DX: I10 Essential (primary) hypertension (principal); I25.10 Atherosclerotic heart disease of native coronary artery without angina pectoris
CPT/HCPCS: 36415; 80053; 80061; 85025; 86141

== ENCOUNTER → 2022-05-25 | Outpatient (CLI) | payer OTHER, SELFPAY ==
[2022-05-25 11:15] LABS: Bacteria 0 SEEN /hpf (None Seen); Mucous, Urine 0 SEEN /hpf (<or=2+); Red Blood Cells-Urine 0 SEEN /hpf (0-5); Squamous Epithelial Cells - UA 0 SEEN /hpf (0-5); White Blood Cells 0 SEEN /hpf (0-5)
[2022-05-25 12:15] LABS: Color, Urine Yellow (Yellow); Glucose, Dipstick Normal (Normal); Ketone-Dipstick Negative (Negative); Leukocyte Esterase-Dipstick Negative /ul (Negative); Nitrite-Dipstick Negative (Negative); Occult Blood-Urine 10 /ul (Negative); Protein-Dipstick 15 mg/dl (Negative); Urine Bilirubin Dipstick Negative (Negative); Urine Clarity Clear (Clear); Urine Urobilinogen Normal (Normal)
[2022-05-25 12:18] LABS: Absolute Lymphocyte Count 2.12 X10^3/uL (0.83-4.51); Absolute Neutrophil Count 2.9 X10^3/uL (2.0-7.7); Basophil# 0.01 X10^3/uL; Basophil% 0.2 % (0-1); Eosinophil# 0.06 X10^3/uL; Eosinophils% 1.1 % (0-5); Hematocrit 44.6 % (40-54); Hemoglobin 15.2 g/dL (13.0-16.5); Lymphocyte # 2.12 X10^3/ul (0.83-4.51); Lymphocyte % 39.1 % (19-41); Mean Corp Hgb Conc 34.1 g/dL (32-36); Mean Corpuscular Hgb 28.8 pg (27.0-32.0); Mean Corpuscular Volume 84.6 fL (80-94); Mean Platelet Vol. 10.6 fl (6.2-12.0); Monocyte# 0.33 X10^3/uL; Monocyte% 6.1 % (0-10); NRBC Flagged by Analyzer 0 % (0-5); Neutrophil # 2.88 X10^3/uL (2.7-7.7); Neutrophil % 53.1 % (47-70); Platelet Count 213 K/mm3 (150-450); RBC Distribution Width CV 11.8 % (11.6-14.6); RBC Distribution Width SD 35.3 fl (35.1-43.9); Red Blood Count 5.27 M/mm3 (4.6-6.2); White Blood Count 5.4 K/mm3 (4.4-11.0)
[2022-05-25 12:39] LABS: Microalbumin,Random Urine 41.4 mg/L (NO RANGE EST.); Microalbumin:Creatinine Ratio 33.7 mg/g CRE (<30 mg/g CRE)
[2022-05-25 13:04] LABS: ALB/GLOB Ratio 1.2 RATIO (0.9-2.4); AST(SGOT) 15 U/L (15-37); Alanine Aminotransfer ALT/SGPT 27 U/L (16-61); Albumin, Serum 3.8 g/dL (3.2-5.0); Alkaline Phosphatase 62 U/L (45-117); Anion Gap 5 (5-15); BUN 19 mg/dL (7-18); BUN/Creat Ratio 14.7 RATIO (10-20); CRP, High Sensitivity Cardiac 3.54 mg/L; Calcium,Total 8.8 mg/dL (8.5-10.1); Chloride 102 mmol/L (98-107); Cholesterol 217 mg/dL (200); Creatinine, Serum 1.29 mg/dL (0.70-1.30); EST Glomerular Filtration Rate 66 mL/min (>60); Est Glom Filt Rate - Afr Amer 80 mL/min (>60); Globulin 3.2 g/dL (2.2-4.2); Glucose 96 mg/dL (74-106); High Density Lipoprotein 41 mg/dL; Potassium 4.1 mmol/L (3.5-5.1); Sodium Level 138 mmol/L (136-145); Triglycerides 88 mg/dL; Very Low Density Lipoprotein 18 mg/dL (5-40)
== END | disposition home or self-care (01) ==
LOC: LAB 11:05
PROVIDERS: PCP Family Medicine; Visit Provider Family Medicine
DX: I25.10 Atherosclerotic heart disease of native coronary artery without angina pectoris (principal); E55.9 Vitamin D deficiency, unspecified; I10 Essential (primary) hypertension; R35.89 Other polyuria
CPT/HCPCS: 36415; 80053; 80061; 81001; 82043; 82306; 82570; 85025; 86141

== ENCOUNTER → 2022-10-03 | Outpatient (CLI) | payer OTHER, SELFPAY ==
[2022-10-03 09:58] LABS: Absolute Lymphocyte Count 2.13 X10^3/uL (0.83-4.51); Absolute Neutrophil Count 3.1 X10^3/uL (2.0-7.7); Basophil# 0.01 X10^3/uL; Basophil% 0.2 % (0-1); Eosinophil# 0.06 X10^3/uL; Eosinophils% 1.1 % (0-5); Hematocrit 43.8 % (40-54); Hemoglobin 15.6 g/dL (13.0-16.5); Lymphocyte # 2.13 X10^3/ul (0.83-4.51); Lymphocyte % 37.4 % (19-41); Mean Corp Hgb Conc 35.6 g/dL (32-36); Mean Corpuscular Hgb 29.7 pg (27.0-32.0); Mean Corpuscular Volume 83.3 fL (80-94); Mean Platelet Vol. 10.6 fl (6.2-12.0); Monocyte# 0.37 X10^3/uL; Monocyte% 6.5 % (0-10); NRBC Flagged by Analyzer 0 % (0-5); Neutrophil % 54.4 % (47-70); Platelet Count 241 K/mm3 (150-450); RBC Distribution Width SD 36.4 fl (35.1-43.9); Red Blood Count 5.26 M/mm3 (4.6-6.2); White Blood Count 5.7 K/mm3 (4.4-11.0)
[2022-10-03 10:24] LABS: ALB/GLOB Ratio 1.1 RATIO (0.9-2.4); AST(SGOT) 22 U/L (15-37); Alanine Aminotransfer ALT/SGPT 32 U/L (16-61); Alkaline Phosphatase 65 U/L (45-117); Anion Gap 4 (5-15); BUN 19 mg/dL (7-18); BUN/Creat Ratio 15.2 RATIO (10-20); Calcium,Total 8.9 mg/dL (8.5-10.1); Chloride 101 mmol/L (98-107); Cholesterol 209 mg/dL (200); Creatinine, Serum 1.25 mg/dL (0.70-1.30); EST Glomerular Filtration Rate 68 mL/min (>60); Est Glom Filt Rate - Afr Amer 83 mL/min (>60); Globulin 3.5 g/dL (2.2-4.2); Glucose 92 mg/dL (74-106); High Density Lipoprotein 42 mg/dL; Microalbumin,Random Urine 23.6 mg/L (NO RANGE EST.); Microalbumin:Creatinine Ratio 75.4 mg/g CRE (<30 mg/g CRE); Potassium 3.8 mmol/L (3.5-5.1); Protein, Total 7.5 g/dL (6.4-8.2); Sodium Level 134 mmol/L (136-145); Triglycerides 103 mg/dL; Very Low Density Lipoprotein 21 mg/dL (5-40)
== END | disposition home or self-care (01) ==
PROVIDERS: PCP Family Medicine; Referring Provider Family Medicine; Visit Provider Family Medicine
DX: I25.10 Atherosclerotic heart disease of native coronary artery without angina pectoris (principal); I10 Essential (primary) hypertension
CPT/HCPCS: 36415; 80053; 80061; 81002; 82043; 82570; 85025

== ENCOUNTER → 2023-01-20 | Outpatient (CLI) | payer OTHER, SELFPAY ==
--- NOTE | 2023-01-20 15:25 | RAD_ITS ---
ACR Level 3 findings have been noted. An addendum which confirms receipt of the report will follow. INDICATION: COSTOCHONDRITIS EXAMINATION/TECHNIQUE: X-RAY - XR Chest 2 Views COMPARISON: CR ChestSep 2018 7:42pm FINDINGS: LINES/DEVICES: None. LUNGS: Ill-defined groundglass opacity in the right upper lobe suggesting pneumonia. MEDIASTINUM AND CARDIOVASCULAR STRUCTURES: Cardiac silhouette not enlarged. Central airways and mediastinal contour are unremarkable. BONES AND SOFT TISSUES: Unremarkable. RAD/Chest PA and Lateral IMPRESSION: Right upper lobe pneumonia. Electronically Signed: Eduard Cameron MD at 1:08 EST ,
[2023-01-20 16:05] LABS: Absolute Lymphocyte Count 1.54 X10^3/uL (0.83-4.51); Absolute Neutrophil Count 6.1 X10^3/uL (2.0-7.7); Basophil# 0.02 X10^3/uL; Basophil% 0.2 % (0-1); Eosinophil# 0.03 X10^3/uL; Eosinophils% 0.4 % (0-5); Hematocrit 44.6 % (40-54); Hemoglobin 15.7 g/dL (13.0-16.5); Lymphocyte # 1.54 X10^3/ul (0.83-4.51); Mean Corp Hgb Conc 35.2 g/dL (32-36); Mean Corpuscular Hgb 28.9 pg (27.0-32.0); Mean Corpuscular Volume 82.1 fL (80-94); Mean Platelet Vol. 10.2 fl (6.2-12.0); Monocyte# 0.42 X10^3/uL; Monocyte% 5.2 % (0-10); NRBC Flagged by Analyzer 0 % (0-5); Neutrophil # 6.08 X10^3/uL (2.7-7.7); Neutrophil % 74.8 % (47-70); Platelet Count 213 K/mm3 (150-450); RBC Distribution Width CV 11.9 % (11.6-14.6); RBC Distribution Width SD 35.4 fl (35.1-43.9); Red Blood Count 5.43 M/mm3 (4.6-6.2); White Blood Count 8.1 K/mm3 (4.4-11.0)
[2023-01-20 16:16] LABS: D-Dimer Quantitative (DVT/PE) 0.29 FEU/ug/m (0.27-0.49)
[2023-01-20 17:24] LABS: ALB/GLOB Ratio 1.2 RATIO (0.9-2.4); AST(SGOT) 27 U/L (15-37); Alanine Aminotransfer ALT/SGPT 42 U/L (16-61); Albumin, Serum 4.3 g/dL (3.2-5.0); Alkaline Phosphatase 62 U/L (45-117); Anion Gap 6 (5-15); BUN 22 mg/dL (7-18); BUN/Creat Ratio 17.3 RATIO (10-20); CRP, High Sensitivity Cardiac 4.95 mg/L; Calcium,Total 8.9 mg/dL (8.5-10.1); Chloride 101 mmol/L (98-107); Creatinine, Serum 1.27 mg/dL (0.70-1.30); EST Glomerular Filtration Rate 67 mL/min (>60); Est Glom Filt Rate - Afr Amer 81 mL/min (>60); Globulin 3.6 g/dL (2.2-4.2); Glucose 97 mg/dL (74-106); Potassium 3.8 mmol/L (3.5-5.1); Protein, Total 7.9 g/dL (6.4-8.2); Sodium Level 136 mmol/L (136-145); Troponin-I HS 69 pg/mL (3.0-78.0)
== END | disposition home or self-care (01) ==
LOC: LAB 15:11
PROVIDERS: PCP Family Medicine; Referring Provider Family Medicine; Visit Provider Family Medicine
DX: M94.0 Chondrocostal junction syndrome [Tietze] (principal); R07.9 Chest pain, unspecified
CPT/HCPCS: 36415; 71046; 80053; 84484; 85025; 85379; 86141

== ENCOUNTER → 2024-01-27 | Outpatient (CLI) | payer OTHER, SELFPAY ==
[2024-01-27 09:54] LABS: Absolute Lymphocyte Count 1.86 X10^3/uL (0.83-4.51); Absolute Neutrophil Count 2.8 X10^3/uL (2.0-7.7); Basophil# 0.01 X10^3/uL; Basophil% 0.2 % (0-1); Eosinophil# 0.13 X10^3/uL; Eosinophils% 2.5 % (0-5); Hematocrit 44.5 % (40-54); Hemoglobin 15.5 g/dL (13.0-16.5); Lymphocyte # 1.86 X10^3/ul (0.83-4.51); Lymphocyte % 35.9 % (19-41); Mean Corp Hgb Conc 34.8 g/dL (32-36); Mean Corpuscular Hgb 29.3 pg (27.0-32.0); Mean Corpuscular Volume 84.1 fL (80-94); Mean Platelet Vol. 10.2 fl (6.2-12.0); Monocyte# 0.37 X10^3/uL; Monocyte% 7.1 % (0-10); NRBC Flagged by Analyzer 0 % (0-5); Neutrophil # 2.79 X10^3/uL (2.7-7.7); Neutrophil % 53.9 % (47-70); Platelet Count 203 K/mm3 (150-450); RBC Distribution Width CV 12.2 % (11.6-14.6); Red Blood Count 5.29 M/mm3 (4.6-6.2); White Blood Count 5.2 K/mm3 (4.4-11.0)
[2024-01-27 11:05] LABS: Cholesterol 249 mg/dL (200); High Density Lipoprotein 54 mg/dL; Triglycerides 108 mg/dL; Very Low Density Lipoprotein 22 mg/dL (5-40)
[2024-01-27 11:11] LABS: Hemoglobin A1c 5.2 % (3.8-5.6)
[2024-01-27 11:12] LABS: Microalbumin,Random Urine 30.2 mg/L (NO RANGE EST.); Microalbumin:Creatinine Ratio 61.9 mg/g CRE (<30 mg/g CRE)
[2024-01-28 04:08] LABS: CRP, High Sensitivity 5.02 mg/L (0.00-3.00)
== END | disposition home or self-care (01) ==
LOC: LAB 09:19
PROVIDERS: PCP Family Medicine; Referring Provider Family Medicine; Visit Provider Family Medicine
DX: I10 Essential (primary) hypertension (principal); I25.10 Atherosclerotic heart disease of native coronary artery without angina pectoris
CPT/HCPCS: 36415; 80061; 82043; 82570; 83036; 85025; 86141

== ENCOUNTER → 2024-02-04 | Outpatient (CLI) | payer OTHER, SELFPAY ==
[2024-02-04 16:33] LABS: ALB/GLOB Ratio 1.3 RATIO (0.9-2.4); AST(SGOT) 26 U/L (15-37); Alanine Aminotransfer ALT/SGPT 41 U/L (16-61); Albumin, Serum 4.2 g/dL (3.2-5.0); Alkaline Phosphatase 92 U/L (45-117); Anion Gap 4 (5-15); BUN 18 mg/dL (7-18); BUN/Creat Ratio 14.3 RATIO (10-20); Calcium,Total 9.1 mg/dL (8.5-10.1); Chloride 99 mmol/L (98-107); Creatinine, Serum 1.26 mg/dL (0.70-1.30); EST Glomerular Filtration Rate 67 mL/min (>60); Est Glom Filt Rate - Afr Amer 81 mL/min (>60); Globulin 3.3 g/dL (2.2-4.2); Glucose 99 mg/dL (74-106); Protein, Total 7.5 g/dL (6.4-8.2); Sodium Level 133 mmol/L (136-145)
== END | disposition home or self-care (01) ==
LOC: MFPLAB 12:21
PROVIDERS: PCP Family Medicine; Visit Provider Family Medicine
DX: I25.10 Atherosclerotic heart disease of native coronary artery without angina pectoris (principal)
CPT/HCPCS: 36415; 80053

== ENCOUNTER → 2024-09-09 | Outpatient (CLI) | payer OTHER, SELFPAY ==
[2024-09-09 18:30] LABS: AST(SGOT) 28 U/L (<=37); Alanine Aminotransfer ALT/SGPT 35 U/L (<=46); Albumin, Serum 4.8 g/dL (3.5-5.0); Alkaline Phosphatase 65 U/L (40-129); Anion Gap 13 (5-15); BUN 30 mg/dL (4-19); BUN/Creat Ratio 23.5 RATIO (10-20); Calcium,Total 9.4 mg/dL (7.6-11.0); Carbon Dioxide 24.7 mmol/L (21.0-32.0); Chloride 98 mmol/L (98-108); Globulin 2.7 g/dL (2.2-4.2); Glucose 105 mg/dL (70-99); Potassium 3.8 mmol/L (3.3-5.1)
[2024-09-09 21:10] LABS: CORTISOL PM 13.60 ug/dL (2.68-10.50)
== END | disposition home or self-care (01) ==
LOC: LAB 17:22
PROVIDERS: PCP Family Medicine; Referring Provider Family Medicine; Visit Provider Family Medicine
DX: R00.0 Tachycardia, unspecified (principal)
CPT/HCPCS: 36415; 80053; 82533; 82627; 84443; 82626

== ENCOUNTER → 2024-10-19 | Outpatient (CLI) | payer OTHER, SELFPAY ==
--- NOTE | 2024-10-19 13:55 | ECHOD_ITS ---
Reason For Study Reason For Study: HTN, Tachycardia Procedure This was a 2D Doppler, Color Flow transthoracic echocardiogram. Exam performed in department. Left Ventricle Normal LV size. The left ventricular ejection fraction is 65 %. Normal diastology for age. No regional wall motion abnormalities noted. Right Ventricle Normal RV size. Normal systolic function. Atria Normal left atrium. Normal right atrium. Mitral Valve Normal mitral valve. Mild (1+) eccentric mitral valve insufficiency. Tricuspid Valve Normal tricuspid valve. Mild (1+) tricuspid valve insufficiency. Aortic Valve Normal aortic valve. Trisinus/trileaflet aortic valve. Pulmonic Valve Normal pulmonic valve. Great Vessels Normal aortic root. The pulmonary artery is normal size. Inferior vena cava collapse with respiration. Pericardium/Pleural No pericardial effusion. MMode/2D Measurements & Calculations LVIDd: 4.8 cm IVSd: 1.1 cm Ao root diam: 3.3 cm LVIDs: 3.3 cm LVPWd: 1.1 cm RVDd: 3.6 cm FS: 30.3 % LAV(MOD-bp): 38.3 ml LVAd ap4: 26.5 cm2 SV(MOD-sp4): 50.6 ml LAV(MOD-bp) Indexed: 20.3 ml/m2 LVLd ap4: 7.1 cm SI(MOD-sp4): 26.9 ml/m2 LAV(MOD-sp2): 31.9 ml EDV(MOD-sp4): 80.3 ml LAV(MOD-sp4): 41.9 ml EDV(sp4-el): 83.2 ml LVAs ap4: 14.4 cm2 LVLs ap4: 6.0 cm ESV(MOD-sp4): 29.7 ml ESV(sp4-el): 29.2 ml EF(MOD-sp4): 63.1 % EF(sp4-el): 64.9 % SV(sp4-el): 53.9 ml LA A4 area: 16.3 cm2 LA dimension(2D): 4.2 cm RA A4 area: 12.0 cm2 TAPSE: 2.1 cm Time Measurements MV dec time: 0.18 sec Doppler Measurements & Calculations MV E max mejia: 97.8 cm/sec Lat Peak E' Mejia: 14.5 cm/sec Med Peak E' Mejia: 8.6 cm/sec MV A max mejia: 71.1 cm/sec E/E' lat: 6.7 E/E' med: 11.4 MV E/A: 1.4 Ao V2 max: 148.4 cm/sec LV V1 max: 109.3 cm/sec MV dec slope: 551.0 cm/sec2 Ao max P.8 mmHg LV V1 max P.8 mmHg Ao V2 mean: 101.1 cm/sec LV V1 mean P.5 mmHg Ao mean P.8 mmHg LV V1 mean: 73.6 cm/sec Ao V2 VTI: 30.0 cm LV V1 VTI: 22.9 cm AV (velocity ratio): 0.76 PA V2 max: 139.2 cm/sec PI end-d mejia: 108.3 cm/sec TR max mejia: 172.7 cm/sec PA V2 mean: 111.8 cm/sec TR max P.9 mmHg ECHO/Echo Complete Interpretation Summary Normal LV size. The left ventricular ejection fraction is 65 %. The global longitudinal strain is normal. The global longitudinal strain = -18. 1 % (normal). Structurally normal valves. Ordering Physician: Mcak Neff Referring Physician: Mack Neff Performed By: Angela Chance, NEHA, RVT
== END | disposition home or self-care (01) ==
LOC: CVS 13:53
PROVIDERS: PCP Family Medicine; Referring Provider Family Medicine; Visit Provider Family Medicine
DX: R00.0 Tachycardia, unspecified (principal); I10 Essential (primary) hypertension
CPT/HCPCS: 93306